=== PATIENT | male | born 1960 | race American Indian/Alaskan Native ===

== ENCOUNTER 2017-02-26 07:12 | Day surgery (SDC) | payer MEDICARE ==
[~2017-02-26 07:12] MED LIST: NEO SYNEPHRINE ONE; ROBINUL ONE; XYLOCAINE MPF 2% ONE
[2017-02-26] MEDS ORDERED: NACL 0.9% 1000 ML 1,000 ML IV SCH (08:00)
[2017-02-26] MEDS ORDERED: WATER FOR IRRIG STERILE IR ONE (08:07)
[2017-02-26] MEDS ORDERED: DIPRIVAN 10 MG/ML IV ONE ×2 (08:09)
[2017-02-26] MEDS ORDERED: NEO SYNEPHRINE ONE (08:11)
--- NOTE | 2017-02-26 08:11 | Anesthesia Consultation ---
Anesthesia Consult and Med Hx Date of service: 02/26/17 - Airway Anesthetic Teeth Evaluation: Good (some missing right side upper and lower) - Pulmonary Exam CTA: Yes - Cardiac Exam Cardiac Exam: RRR - Pre-Operative Health Status ASA Pre-Surgery Classification: ASA3 Proposed Anesthetic Plan: MAC - Pulmonary Hx Smoking: Yes (11/26 PPD) - Cardiovascular System Hx Hypertension: Yes Hx Coronary Artery Disease: Yes - Central Nervous System CVA: Yes (left sided weakness and speech impaired) Hx Psychiatric Problems: No - Endocrine Hx Renal Disease: Yes (bilateral nephrectomy - ESRD DIALYSIS M,W,F) Hx End Stage Renal Disease: Yes Hx Insulin Dependent Diabetes: No - Hematic Hx Anemia: Yes Hx Sickle Cell Disease: No - Other Systems Hx Alcohol Use: No Hx Substance Use: No Hx Cancer: Yes Hx Obesity: No
--- NOTE | 2017-02-26 08:12 | Anesthesia Day of Surgery ---
Anesthesia Day of Surgery - Day of Surgery Patient Examined: Yes Patient H&P Reviewed: Yes Patient is NPO: Yes Beta Blockers: Yes
[2017-02-26] MEDS ORDERED: XYLOCAINE MPF 2% ONE (08:13)
[2017-02-26] MEDS ORDERED: NACL 0.9% ONE (08:13)
--- NOTE | 2017-02-26 08:51 | Short Stay Summary ---
Short Stay Documentation - Allergies and Medications Current Medications: Allergies No Known Allergies Allergy (Verified 02/25/17 12:59) Home Medications Medication Instructions Recorded Confirmed Last Taken Type Rosuvastatin (Nf) [Crestor] 20 mg PO QHS 08/02/13 04/10/15 02/24/17 History Sevelamer Carbonate [Renvela] 800 mg PO TIDWM 08/02/13 04/10/15 02/24/17 History Aspirin [Aspirin TAB] 325 mg PO QDAY 04/10/15 04/10/15 02/13/17 History Bisacodyl [Dulcolax suppos] 10 mg [place] Q12H 04/10/15 04/10/15 02/24/17 History Carvedilol [Coreg] 6.25 mg PO BID 04/10/15 04/10/15 02/24/17 History Folic Acid/Vit B Comp W-C [Renal 1 cap PO QDAY 04/10/15 04/10/15 02/24/17 History Caps] Vit B Cmplx 3/FA/Vit C/Biotin 1 each PO QDAY 04/10/15 04/10/15 02/24/17 History [Pastora-Kelvin Rx Tablet] Active Medications Sodium Chloride (Nacl 0.9% 1000 Ml) 1,000 mls @ 50 mls/hr IV DIRECT BUSTER Last Admin: 02/26/17 07:56 Dose: 50 mls/hr - Brief post op/procedure progress note Date of procedure: 02/26/17 Pre-op diagnosis: Colon cancer screening 2. H/o of colon polyps Post-op diagnosis: same (1. Poor prep 2. Diverticulosis coli) Procedure: Colonoscopy Anesthesia: MAC Findings: As above Surgeon: MATTHEW DACOSTA Estimated blood loss: none Pathology: none Condition: stable - Disposition Condition at discharge: Stable Disposition: DISCHARGED TO HOME OR SELFCARE Short Stay Discharge Plan Activity: no restrictions Weight Bearing Status: Full Weight Bearing Diet: regular, low salt, renal Follow up with: ELIESER MITCHELL MD [Primary Care Provider] - 7 Days
[2017-02-26 09:12] VITALS: BP 127/72
--- NOTE | 2017-02-26 09:32 | Post Anesthesia Evaluation ---
- Post Anesthesia Evaluation Patient Participated: Yes Airway Patent: Yes Stable Respiratory Function: Yes Nausea/Vomiting: No Temp > 96.8F: Yes Pain Manageable: Yes Adequeate Hydration: Yes Anesthesia Complications: No
== END 2017-02-26 07:13 | disposition home or self-care (01) ==
LOC: GIO 07:12
PROVIDERS: ATTEND Internal Medicine Gastroenterology
DX: Z12.11 Encounter for screening for malignant neoplasm of colon (principal); K64.0 First degree hemorrhoids; K57.30 Diverticulosis of large intestine without perforation or abscess without bleeding; I12.0 Hypertensive chronic kidney disease with stage 5 chronic kidney disease or end stage renal disease; N18.6 End stage renal disease; I25.10 Atherosclerotic heart disease of native coronary artery without angina pectoris; F17.210 Nicotine dependence, cigarettes, uncomplicated; D64.9 Anemia, unspecified; Z90.5 Acquired absence of kidney; Z86.73 Personal history of transient ischemic attack (TIA), and cerebral infarction without residual deficits; Z85.9 Personal history of malignant neoplasm, unspecified; Z86.010 Personal history of colon polyps
CPT/HCPCS: G0105; J2370; J2704; J7030

== ENCOUNTER 2017-06-17 17:45 | Emergency (ER) | payer MEDICARE ==
[2017-06-17 19:07] LABS: Hematocrit 35.8 % (35.5-45.6); Hemoglobin 11.9 gm/dl (11.8-15.2); Mean Corpuscular HGB Conc 33 % (32-34); Mean Corpuscular Hemoglobin 34 pg (28-32); Mean Corpuscular Volume 103 fl (84-94); Platelet Count 164 K/mm3 (140-440); Red Blood Count 3.48 M/mm3 (3.65-5.03); Red Cell Distribution Width 16.5 % (13.2-15.2); White Blood Count 6.1 K/mm3 (4.5-11.0)
[2017-06-17 19:12] LABS: BUN/Creatinine Ratio 3.66; Calcium 9.5 mg/dL (8.4-10.2); Chloride 95.3 mmol/L (98-107); Potassium 4.6 mmol/L (3.6-5.0)
--- NOTE | 2017-06-17 19:13 | Cat Scan Report ---
FINAL REPORT PROCEDURE: CT head without contrast. TECHNIQUE: Computerized tomography of the head was performed without contrast material. HISTORY: Headache. COMPARISON: No prior studies are available for comparison. FINDINGS: There is mild cerebral atrophy. There is some diminished attenuation in the right frontal and temporal lobes near the sylvian fissure. This shows no mass effect. There is also some linear low attenuation within the right external capsule. These findings are consistent with an old stroke. Clinical correlation is recommended. There are no mass lesions. There is no intracranial hemorrhage. The calvarium appears intact. The mastoid air cells and visualized paranasal sinuses are well aerated. IMPRESSION: Mild cerebral atrophy and old right-sided stroke as described. No definite signs of acute disease.
[2017-06-17 19:45] LABS: Basophils % (Manual) 0 % (0.0-1.8); Blastocytes % (Manual) 0 %
[2017-06-17 19:47] LABS: Anisocytosis 1+; Diff Status Complete; Platelet Estimate Consistent w Auto
[2017-06-17 23:40] VITALS: BP 140/90
== END 2017-06-17 23:40 | disposition left against medical advice (07) ==
LOC: ED 17:45
DX: M54.2 Cervicalgia (principal); R51 Headache; I50.9 Heart failure, unspecified; I12.0 Hypertensive chronic kidney disease with stage 5 chronic kidney disease or end stage renal disease; N18.6 End stage renal disease; Z86.73 Personal history of transient ischemic attack (TIA), and cerebral infarction without residual deficits; Z99.2 Dependence on renal dialysis; Z53.21 Procedure and treatment not carried out due to patient leaving prior to being seen by health care provider
CPT/HCPCS: 36415; 70450; 80048; 85007; 85025

== ENCOUNTER 2018-07-01 05:09 | Inpatient (IN) | payer MEDICARE ==
--- NOTE | 2018-07-01 06:18 | Emergency Department Report ---
ED General Adult HPI - General Chief complaint: Wound/Laceration Stated complaint: ARTERIAL BLEED Time Seen by Provider: 07/01/18 06:16 Source: EMS Mode of arrival: Ambulatory Limitations: Other - History of Present Illness Initial comments: Chief complaint: bleeding from dialysis shunt History of present illness: Patient reported that his dialysis shunt, located left forearm, began bleeding at 3:00 this morning, when he was unable to control it. Patient was hospitalized last week, at another hospital, for the same complaint, evaluated by surgeon, had a procedure, to clear a clot, was observed, and apparently released for use of shunt, and had first dialysis yesterday, with bleeding during this past evening. Pressure dressing was applied, patient is stable otherwise, has no other complaints Severity scale (0 -10): 0 - Related Data Home Medications Medication Instructions Recorded Confirmed Last Taken Rosuvastatin (Nf) [Crestor] 20 mg PO QHS 08/02/13 06/17/17 06/16/17 Aspirin [Aspirin TAB] 325 mg PO QDAY 04/10/15 06/17/17 06/16/17 Bisacodyl [Dulcolax suppos] 10 mg [place] Q12H 04/10/15 06/17/17 06/16/17 Carvedilol [Coreg] 6.25 mg PO BID 04/10/15 06/17/17 06/16/17 Folic Acid/Vit B Comp W-C [Renal 1 cap PO QDAY 04/10/15 06/17/17 06/16/17 Caps] Allergies Allergy/AdvReac Type Severity Reaction Status Date / Time No Known Allergies Allergy Verified 06/17/17 18:28 ED Review of Systems ROS: Stated complaint: ARTERIAL BLEED Other details as noted in HPI ED Past Medical Hx - Past Medical History Previous Medical History?: Yes Hx Hypertension: Yes Hx CVA: Yes Hx Congestive Heart Failure: Yes Hx Renal Disease: Yes (bilateral nephrectomy - ESRD DIALYSIS M,W,F) Hx Sickle Cell Disease: No - Surgical History Past Surgical History?: Yes - Social History Smoking Status: Former Smoker Substance Use Type: Alcohol - Medications Home Medications: Home Medications Medication Instructions Recorded Confirmed Last Taken Type Rosuvastatin (Nf) [Crestor] 20 mg PO QHS 08/02/13 06/17/17 06/16/17 History Aspirin [Aspirin TAB] 325 mg PO QDAY 04/10/15 06/17/17 06/16/17 History Bisacodyl [Dulcolax suppos] 10 mg [place] Q12H 04/10/15 06/17/17 06/16/17 History Carvedilol [Coreg] 6.25 mg PO BID 04/10/15 06/17/17 06/16/17 History Folic Acid/Vit B Comp W-C [Renal 1 cap PO QDAY 04/10/15 06/17/17 06/16/17 History Caps] ED Physical Exam - General Limitations: Other General appearance: alert, in no apparent distress - Head Head exam: Present: atraumatic, normocephalic - Eye Eye exam: Present: PERRL - ENT ENT exam: Present: normal exam, mucous membranes dry - Neck Neck exam: Present: normal inspection, full ROM. Absent: tenderness - Respiratory Respiratory exam: Present: normal lung sounds bilaterally. Absent: wheezes, rales, rhonchi - Cardiovascular Cardiovascular Exam: Present: regular rate, normal heart sounds - GI/Abdominal GI/Abdominal exam: Present: soft, normal bowel sounds. Absent: distended - Rectal Rectal exam: Present: deferred - Extremities Exam Extremities exam: Present: normal inspection, other (puncture site, left radial shunt site, bleeds with removal of pressure dressing, no thrill or clot observed , dressing reapplied). Absent: pedal edema - Neurological Exam Neurological exam: Present: alert, CN II-XII intact. Absent: motor sensory deficit - Psychiatric Psychiatric exam: Present: normal affect, normal mood - Skin Skin exam: Present: warm, dry ED Course Vital Signs 07/01/18 05:38 Temperature 36.9 C Pulse Rate 86 Respiratory 20 Rate Blood Pressure 104/77 O2 Sat by Pulse 99 Oximetry ED Medical Decision Making - Lab Data Result diagrams: 07/01/18 05:58 - Medical Decision Making Patient has shunt bleeding, left forearm at radius AV shunt site, will be admitted for evaluation by privacy officer and vascular surgeon, with hospitalist Dr. Jernigan consult for admission. Critical Care Time: No Critical care attestation.: If time is entered above; I have spent that time in minutes in the direct care of this critically ill patient, excluding procedure time. ED Disposition Clinical Impression: ESRD (end stage renal disease) on dialysis AV shunt malfunction Qualifiers: Encounter type: initial encounter Qualified Code(s): T82.591A - Other mechanical complication of surgically created arteriovenous shunt, initial encounter Disposition: OP ADMIT IP TO THIS HOSP Is pt being admited?: Yes Does the pt Need Aspirin: No Condition: Stable Referrals: PRIMARY CARE, [Primary Care Provider] - 3-5 Days Time of Disposition: 09:26
[2018-07-01 06:31] LABS: Basophils # (Auto) 0.1 K/mm3 (0.0-0.1); Basophils % (Auto) 0.9 % (0.0-1.8); Eosinophils # (Auto) 0.3 K/mm3 (0.0-0.4); Eosinophils % (Auto) 3.4 % (0.0-4.3); Hemoglobin 11.5 gm/dl (11.8-15.2); Lymphocytes # (Auto) 2.5 K/mm3 (1.2-5.4); Lymphocytes % (Auto) 32.1 % (13.4-35.0); Mean Corpuscular HGB Conc 34 % (32-34); Mean Corpuscular Hemoglobin 35 pg (28-32); Mean Corpuscular Volume 104 fl (84-94); Monocytes # (Auto) 0.9 K/mm3 (0.0-0.8); Monocytes % (Auto) 11.8 % (0.0-7.3); Platelet Count 280 K/mm3 (140-440); Red Blood Count 3.26 M/mm3 (3.65-5.03); Red Cell Distribution Width 15.9 % (13.2-15.2)
[2018-07-01 09:39] LABS: INR 0.96 (0.87-1.13)
[2018-07-01 09:40] LABS: Partial Thromboplastin Time 27.8 Sec. (24.2-36.6)
[2018-07-01 09:45] LABS: Albumin 3.9 g/dL (3.9-5); Calcium 9.1 mg/dL (8.4-10.2)
--- NOTE | 2018-07-01 10:30 | History and Physical Report ---
History of Present Illness Date of examination: 07/01/18 Date of admission: 07/01/18 Chief complaint: bleeding from dialysis shunt History of present illness: 57-year-old male with significant past medical history of ESRD and hypertension who presents to the emergency department with complaints of bleeding from AV graft. The patient has a AV graft located in the left forearm and it began bleeding at approximately 5 AM this morning. Patient reports that he was hospitalized last week for a thrombectomy of his shunt. Patient reports that his last hemodialysis was yesterday. Patient denies any other complaints of chest pain or shortness of breath. No hematemesis or hematochezia. No cough or cold-like symptoms. No fever or chills. Past History Past Medical History: ESRD, heart failure, hypertension, hyperlipidemia, stroke Past Surgical History: Other Social history: no significant social history Family history: no significant family history Medications and Allergies Allergies Allergy/AdvReac Type Severity Reaction Status Date / Time No Known Allergies Allergy Verified 06/17/17 18:28 Home Medications Medication Instructions Recorded Confirmed Last Taken Type Rosuvastatin (Nf) [Crestor] 20 mg PO QHS 08/02/13 06/17/17 06/16/17 History Aspirin [Aspirin TAB] 325 mg PO QDAY 04/10/15 06/17/17 06/16/17 History Bisacodyl [Dulcolax suppos] 10 mg [place] Q12H 04/10/15 06/17/17 06/16/17 History Carvedilol [Coreg] 6.25 mg PO BID 04/10/15 06/17/17 06/16/17 History Folic Acid/Vit B Comp W-C [Renal 1 cap PO QDAY 04/10/15 06/17/17 06/16/17 History Caps] Review of Systems All systems: negative Exam - Constitutional Vitals: Temp Pulse Resp BP Pulse Ox 98.5 F 86 20 104/77 99 07/01/18 05:38 07/01/18 05:38 07/01/18 05:38 07/01/18 05:38 07/01/18 05:38 General appearance: Present: no acute distress, well-nourished - EENT Eyes: Present: PERRL ENT: hearing intact, clear oral mucosa - Neck Neck: Present: supple, normal ROM - Respiratory Respiratory effort: normal Respiratory: bilateral: CTA - Cardiovascular Heart Sounds: Present: S1 & S2. Absent: rub, click - Extremities Extremities: pulses symmetrical, No edema Peripheral Pulses: within normal limits - Abdominal General gastrointestinal: Present: soft, non-tender, non-distended, normal bowel sounds Male genitourinary: Present: normal - Integumentary Integumentary: Present: clear, warm, dry - Musculoskeletal Musculoskeletal: gait normal, strength equal bilaterally - Psychiatric Psychiatric: appropriate mood/affect, intact judgment & insight - Neurologic Neurologic: CNII-XII intact, moves all extremities Results - Labs CBC & Chem 7: 07/01/18 05:58 07/01/18 09:12 Labs: Laboratory Last Values WBC 7.8 K/mm3 (4.5-11.0) 07/01/18 05:58 RBC 3.26 M/mm3 (3.65-5.03) L 07/01/18 05:58 Hgb 11.5 gm/dl (11.8-15.2) L 07/01/18 05:58 Hct 34.0 % (35.5-45.6) L 07/01/18 05:58 MCV 104 fl (84-94) H 07/01/18 05:58 MCH 35 pg (28-32) H 07/01/18 05:58 MCHC 34 % (32-34) 07/01/18 05:58 RDW 15.9 % (13.2-15.2) H 07/01/18 05:58 Plt Count 280 K/mm3 (140-440) 07/01/18 05:58 Lymph % (Auto) 32.1 % (13.4-35.0) 07/01/18 05:58 Dunn % (Auto) 11.8 % (0.0-7.3) H 07/01/18 05:58 Eos % (Auto) 3.4 % (0.0-4.3) 07/01/18 05:58 Baso % (Auto) 0.9 % (0.0-1.8) 07/01/18 05:58 Lymph # 2.5 K/mm3 (1.2-5.4) 07/01/18 05:58 Dunn # 0.9 K/mm3 (0.0-0.8) H 07/01/18 05:58 Eos # 0.3 K/mm3 (0.0-0.4) 07/01/18 05:58 Baso # 0.1 K/mm3 (0.0-0.1) 07/01/18 05:58 Seg Neutrophils % 51.8 % (40.0-70.0) 07/01/18 05:58 Seg Neutrophils # 4.1 K/mm3 (1.8-7.7) 07/01/18 05:58 PT 13.3 Sec. (12.2-14.9) 07/01/18 09:12 INR 0.96 (0.87-1.13) 07/01/18 09:12 APTT 27.8 Sec. (24.2-36.6) 07/01/18 09:12 Sodium 142 mmol/L (137-145) 07/01/18 09:12 Potassium 3.6 mmol/L (3.6-5.0) 07/01/18 09:12 Chloride 98.8 mmol/L (98-107) 07/01/18 09:12 Carbon Dioxide 27 mmol/L (22-30) 07/01/18 09:12 Anion Gap 20 mmol/L 07/01/18 09:12 BUN 19 mg/dL (9-20) 07/01/18 09:12 Creatinine 6.7 mg/dL (0.8-1.5) H 07/01/18 09:12 Estimated GFR 10 ml/min 07/01/18 09:12 BUN/Creatinine Ratio 3 % 07/01/18 09:12 Glucose 100 mg/dL (75-100) 07/01/18 09:12 Calcium 9.1 mg/dL (8.4-10.2) 07/01/18 09:12 Total Bilirubin 0.40 mg/dL (0.1-1.2) 07/01/18 09:12 AST 18 units/L (5-40) 07/01/18 09:12 ALT 10 units/L (7-56) 07/01/18 09:12 Alkaline Phosphatase 113 units/L (35-129) 07/01/18 09:12 Total Protein 7.8 g/dL (6.3-8.2) 07/01/18 09:12 Albumin 3.9 g/dL (3.9-5) 07/01/18 09:12 Albumin/Globulin Ratio 1.0 % 07/01/18 09:12 Blood Type O POSITIVE 07/01/18 05:58 Antibody Screen Negative 07/01/18 05:58 Assessment and Plan Assessment and plan: AV graft bleeding. [facility] surgery has been notified by the ER physician. Await vascular surgery consultation. Continue pressure dressing. Follow-up coags and serial CBC. Transfuse for hemoglobin less than 7. ESRD. Continue hemodialysis per nephrology. Chronic systolic heart failure. Compensated. Patient has cardiac catheterization in 2014 that revealed EF 35%. Continue Coreg. CAD. Hold aspirin for now given the bleeding. Hyperlipidemia. Continue home medication of Crestor. Hypertension. Continue antihypertensive medications as needed. - Patient Problems (1) AV shunt malfunction Current Visit: Yes Status: Acute Qualifiers: Encounter type: initial encounter Qualified Code(s): T82.591A - Other mechanical complication of surgically created arteriovenous shunt, initial encounter (2) ESRD (end stage renal disease) on dialysis Current Visit: Yes Status: Chronic (3) CAD (coronary artery disease) Current Visit: No Status: Acute (4) Cardiomyopathy Current Visit: No Status: Chronic (5) Hyperlipemia Current Visit: No Status: Chronic (6) Hypertension Current Visit: No Status: Chronic
[2018-07-01] MEDS ORDERED: TYLENOL PO PRN (10:35)
[2018-07-01] MEDS ORDERED: SODIUM CHLORIDE FLUSH SYRINGE 10 ML IV PRN (10:35)
[2018-07-01] MEDS: DULCOLAX PR SCH ×2 (10:42→23:00)
[2018-07-01] MEDS ORDERED: ZOFRAN IV PRN (11:00)
[2018-07-01] MEDS ORDERED: HEPARIN/NS 5000 UNIT/500ML(CATH LAB) 1,000 ML IR ONE (14:20)
[2018-07-01] MEDS ORDERED: XYLOCAINE 1%/ EPI 1:100,000 INFILTRATI ONE (14:21)
[2018-07-01] MEDS ORDERED: HEPARIN 10,000 UNITS/10 ML ONE (14:21)
[2018-07-01] MEDS ORDERED: ANCEF/STERILE WATER 2 GM/20 ML 2 GM/20 ML SYRINGE IV ONE (14:22)
[2018-07-01] MEDS: VERSED ONE ×2 (14:48→14:51)
[2018-07-01] MEDS: SUBLIMAZE ONE ×3 (14:48→15:06)
[2018-07-01] MEDS ORDERED: SUBLIMAZE ONE (14:54)
--- NOTE | 2018-07-01 15:23 | Post Operative Note ---
Date of procedure: 07/01/18 Pre-op diagnosis: ESRD with AVF malfunction Post-op diagnosis: same Findings: old access site from access center which was closed with pressure reopened - closed with 3, 3-0 ethilon sutures Severe 95% anastamotic narrowing reduced to 10% residual narrowing mild infiltration of the AVF fistula site likely from old access site bleeding If can be accessed without issue during dialysis, then can consider discharge with f/u with PVS in 1-2 weeks If infiltration is hindering access, then may need temporary permcath placement Procedure: Fistulogram with angioplasty Anesthesia: local Surgeon: YADI MIDDLETON Estimated blood loss: minimal Condition: stable Disposition: floor
--- NOTE | 2018-07-01 15:23 | Operative Report ---
Operative Report Operative Report: EXAM: 1. Ultrasound guided access of the left arm radiocephalic AV fistula towards the anastomosis 2. Placement of a 6 Fr sheath towards the anastomosis 3. Selection of the radial artery and a retrograde fashion with angiography of the left upper extremity 4. Angioplasty of the anastomosis and perianastamotic portion of the AV fistula with a 5 mm angioplasty balloon and subsequently with a 6 mm angioplasty balloon DATE: 07/01/18 FILTERING MACHINE TENDER HELPER: YADI MIDDLETON MD INDICATION: 57-year-old male with bleeding from AV fistula with recent fistulogram performed at outside institution. MEDICATIONS: Please see nursing report for full details. DEVICES: 5 mm x 60 mm angioplasty balloon 6 mm x 40 mm angioplasty balloon PROCEDURE: The risks, benefits, and alternatives of the procedure were discussed and written informed consent was obtained. The patient was transported in stable condition to the angiography suite. The radiocephalic fistula was evaluated with ultrasound and on visual exam. Ultrasound demonstrated a slight amount of infiltration overlying the aneurysmal portion of the cephalic vein of the AV fistula. There is an old puncture site at the midportion of the cephalic vein which was not bleeding, but the site of prior bleeding. This was an old access site for fistulogram which was closed with manual compression without suture at outside institution. The area was anesthetized with 1% lidocaine. The old access site was closed with 3 separate stitches with 3-0 Ethilon. The patient's left arm AV fistula was assessed by ultrasound and was patent. The patient was prepped and draped in a sterile fashion. Under ultrasound guidance, the left arm AV radiocephalic fistula was accessed with a 21-gauge micropuncture needle at the midportion of the aneurysmal cephalic vein. The area was anesthetized prior to access. 0.018 inch wire was advanced through the micropuncture needle into the fistula and then the needle was exchanged for a 5 Solomon Islander transitional dilator. The inner dilator and wire were removed and a 0.035 inch wire was advanced through the cephalic vein. The transitional dilator was exchanged for a 6 [place] Islander short sheath. Angled catheter and guidewire were used to select the radial artery. Digital subtraction angiography was performed demonstrating severe anastomotic and nata- anastomotic narrowing with patency of the rest of the AV fistula. There are some side branches which are not significant in size. Angioplasty was performed with perianastomotic and anastomotic region with a 5 mm x 60 mm angioplasty balloon vision subtraction angiography demonstrated about 25% residual narrowing. 6 mm x 40 mm angioplasty balloon was used to perform angioplasty of the anastomosis and perianastomotic region. Digital subtraction angiography demonstrated less than 10% residual narrowing. Fistulogram was performed of the venous outflow and central veins. Subtraction angiography demonstrated patency of the venous outflow and central veins. The venous outflow was predominantly comprised of the cephalic vein. The wire was removed and the site was closed with a 3-0 Vicryl suture. The sheath was then removed. Hemostasis was achieved with slight manual compression. The patient was transported from the angiography suite to the floor in stable condition. IMPRESSION: Successful fistulogram and venoplasty as descibed above with a 5 mm and 6 mm angioplasty balloon.
--- NOTE | 2018-07-01 16:28 | Consultation ---
History of Present Illness - Reason for Consult Consult date: 07/01/18 Malfunctioning Left Upper Extremity AV Fistula - History of Present Illness Patient was evaluated earlier this morning. This patient is a 57-year-old -[place] male that presented to the emergency room today due to complaints of persistent bleeding from his left arm AV fistula. The fistula was [place] [address] Esteves. He states he has had multiple episodes of bleeding over the last few weeks. He reports going to the access center essentially every 3 months for fistulogram and angioplasty. He was admitted to [facility] last week, and an angioplasty was performed. He developed recurrent bleeding early this morning which prompted him to go to the emergency room. Past History Past Medical History: dialysis, ESRD, heart failure, hypertension, hyperlipidemia, stroke Past Surgical History: Other (left Ginger AV fistula, previous right internal jugular vein permacath, multiple fistulograms to the left upper extremity AV fistula) Social history: no significant social history Family history: no significant family history Medications and Allergies Allergies Allergy/AdvReac Type Severity Reaction Status Date / Time No Known Allergies Allergy Verified 06/17/17 18:28 Home Medications Medication Instructions Recorded Confirmed Last Taken Type Carvedilol [Coreg] 6.25 mg PO BID 04/10/15 07/01/18 06/16/17 History Lisinopril [Prinivil] 5 mg PO QDAY 07/01/18 07/01/18 Unknown History Rosuvastatin Calcium [Crestor] 20 mg PO HS 07/01/18 07/01/18 Unknown History Sevelamer Carbonate [Renvela] 1,600 mg PO TIDWM 07/01/18 07/01/18 Unknown History Active Meds: Active Medications Acetaminophen (Tylenol) 650 mg PO Q4H PRN PRN Reason: Pain MILD(1-3)/Fever >100.5/LARSON Atorvastatin Calcium (Lipitor) 40 mg PO QHS BUSTER Bisacodyl (Dulcolax) 10 mg [place] Q12H BUSTER Last Admin: 07/01/18 10:42 Dose: Not Given Carvedilol (Coreg) 6.25 mg PO BID BUSTER Multivit/Ca Carb/B Cmplx/FA/Prenat (Renal Caps) 1 cap PO QDAY BUSTER Ondansetron HCl (Zofran) 4 mg IV Q8H PRN PRN Reason: Nausea And Vomiting Sodium Chloride (Sodium Chloride Flush Syringe 10 Ml) 10 ml IV BID BUSTER Sodium Chloride (Sodium Chloride Flush Syringe 10 Ml) 10 ml IV PRN PRN PRN Reason: LINE FLUSH Stop: 07/11/18 10:34 Review of Systems All systems: negative Exam - Constitutional Vitals: Temp Pulse Resp BP Pulse Ox 98.5 F 84 18 111/75 98 07/01/18 12:29 07/01/18 12:29 07/01/18 12:29 07/01/18 12:29 07/01/18 16:03 General appearance: Present: no acute distress - EENT Eyes: Present: EOM intact ENT: hearing intact - Neck Neck: Present: supple - Respiratory Respiratory effort: normal - Extremities Extremities: abnormal (left upper extremity, he has a radiocephalic (Ginger) AV fistula, there is an elongated pseudoaneurysm along the course of the proximal ( towards the radial artery anastomosis) AV fistula. There is hole in the skin ~2 -3mm (I suspect the recent access site) that appears to be where he was bleeding upon admission. There is no bleeding from the site at present. There is no erythema surrounding the skin defect. He has a strong thrill at the arterial anastomosis, but the diminishes before the pseudoaneurysm, the is a weak thrill throughout the course of the fistula up through the upper arm.) - Psychiatric Psychiatric: appropriate mood/affect, intact judgment & insight, cooperative - Neurologic Neurologic: no focal deficits Results - Labs CBC & Chem 7: 07/01/18 05:58 07/01/18 09:12 Labs: Abnormal lab results 07/01/18 07/01/18 Range/Units 05:58 09:12 RBC 3.26 L (3.65-5.03) M/mm3 Hgb 11.5 L (11.8-15.2) gm/dl Hct 34.0 L (35.5-45.6) % MCV 104 H (84-94) fl MCH 35 H (28-32) pg RDW 15.9 H (13.2-15.2) % [place] % (Auto) 11.8 H (0.0-7.3) % [place] # 0.9 H (0.0-0.8) K/mm3 Creatinine 6.7 H (0.8-1.5) mg/dL Assessment and Plan This patient is status post creation of left upper extremity AV [place] [address] Esteves. He's had multiple episodes of bleeding in the recent past. He's been going to the outpatient fistula center (every 3 months per patient report). His last intervention was last week while admitted to [facility]. He presents today to the emergency room with recurrent bleeding from AV fistula. The patient was evaluated, and the hemorrhage had stopped. Discussed options with the patient and his family member at the bedside. Recommend a fistulogram with possible angioplasty. If the fistula appears to be unsalvageable he may require permacath placement. The risks benefits and alternatives to these procedures were discussed in great detail. The patient stated understanding (having previously undergone similar procedures), and agreed to proceed. - Patient Problems (1) Malfunction of arteriovenous dialysis fistula Current Visit: Yes Status: Acute (2) ESRD (end stage renal disease) on dialysis Current Visit: Yes Status: Chronic (3) CAD (coronary artery disease) Current Visit: No Status: Acute (4) CVA (cerebral vascular accident) Current Visit: No Status: Chronic (5) Hyperlipemia Current Visit: No Status: Chronic (6) Hypertension Current Visit: No Status: Chronic
--- NOTE | 2018-07-01 17:49 | Consultation ---
History of Present Illness - Reason for Consult Consult date: 07/01/18 end stage renal disease Requesting physician: MCKENZIE CHUNG - History of Present Illness This is a 57 yo M with past medical history of hypertension, ESRD since 2010 on HD on MWF schedule, h/o papillary renal cell CA, s/p b/l nephrectomy in 04/2014, who presented to the ER today due to complaints of persistent bleeding from his left arm AV fistula. Last HD was performed yesterday, and after treatment there was good hemostasis. However pt reports that he had multiple episodes of bleeding over the last few weeks, was hospitalized last week for a thrombectomy of his shunt. He developed recurrent bleeding early this morning which prompted him to present to ER. Pt denies fever, chills nausea, vomiting, dizziness, palpitations, SOB, CP. labs showed stable Hb at 11.5. Renal consult is requested for management of ESRD/HD Past History Past Medical History: dialysis, ESRD, heart failure, hypertension, hyperlipidemia, stroke Past Surgical History: Other (left Ginger AV fistula, previous right internal jugular vein permacath, multiple fistulograms to the left upper extremity AV fistula) Social history: no significant social history Family history: no significant family history Medications and Allergies Allergies Allergy/AdvReac Type Severity Reaction Status Date / Time No Known Allergies Allergy Verified 06/17/17 18:28 Home Medications Medication Instructions Recorded Confirmed Last Taken Type Carvedilol [Coreg] 6.25 mg PO BID 04/10/15 07/01/18 06/16/17 History Lisinopril [Prinivil] 5 mg PO QDAY 07/01/18 07/01/18 Unknown History Rosuvastatin Calcium [Crestor] 20 mg PO HS 07/01/18 07/01/18 Unknown History Sevelamer Carbonate [Renvela] 1,600 mg PO TIDWM 07/01/18 07/01/18 Unknown History Active Meds: Active Medications Acetaminophen (Tylenol) 650 mg PO Q4H PRN PRN Reason: Pain MILD(1-3)/Fever >100.5/[place] Atorvastatin Calcium (Lipitor) 40 mg PO QHS [facility]UST[facility] Bisacodyl (Dulcolax) 10 mg [place] Q12H BUSTER Last Admin: 07/01/18 10:42 Dose: Not Given Carvedilol (Coreg) 6.25 mg PO BID BUSTER Multivit/Ca Carb/B Cmplx/FA/Prenat (Renal Caps) 1 cap PO QDAY BUSTER Ondansetron HCl (Zofran) 4 mg IV Q8H PRN PRN Reason: Nausea And Vomiting Sodium Chloride (Sodium Chloride Flush Syringe 10 Ml) 10 ml IV BID [facility] Sodium Chloride (Sodium Chloride Flush Syringe 10 Ml) 10 ml IV PRN PRN PRN Reason: LINE FLUSH Stop: 07/11/18 10:34 Review of Systems All systems: negative Hematologic/Lymphatic: easy bleeding Exam - Vital Signs Vital signs: Vital Signs Temp Pulse Resp BP Pulse Ox 98.5 F 86 20 104/77 99 07/01/18 05:38 07/01/18 05:38 07/01/18 05:38 07/01/18 05:38 07/01/18 05:38 - General Appearance General appearance: well-developed, well-nourished, appears stated age EENT: ATNC, PERRL, mucous membranes moist Neck: Present: neck supple Respiratory: Clear to Ascultation Heart: regular, S1S2 Gastrointestinal: Present: normoactive bowel sounds Integumentary: no rash, other (no edema, LUE AVF site in compression dressing ) Neurologic: no focal deficit, alert and oriented x3, strength 5/5, CN 3-12 intact Psychiatric: mood/affect appropriate, cooperative Results - Lab Results 07/01/18 05:58 07/01/18 09:12 Most recent lab results Calcium 9.1 mg/dL (8.4-10.2) 07/01/18 09:12 Assessment and Plan - Patient Problems (1) Malfunction of arteriovenous dialysis fistula Current Visit: Yes Status: Acute Plan to address problem: s/p fistulogram/angioplasty today, severe anastomotic narrowing of 95% noted, s/ p angioplasty with 10% residual narrowing (2) ESRD (end stage renal disease) on dialysis Current Visit: Yes Status: Chronic Plan to address problem: Will attempt HD in AM using LUE AVF. if problems occur to access AVF due to infiltation will ask IR to place permcath. Appreciate vascular surgery input. Cont HD on MWF schedule (3) Hypertension Current Visit: No Status: Chronic Plan to address problem: bp stable, monitor on current meds (4) Anemia in end-stage renal disease Current Visit: Yes Status: Acute Plan to address problem: Hb stable at target, no need for EPO at present
[2018-07-01] MEDS ORDERED: NACL 0.9% 100 ML IV PRN (18:02)
[2018-07-01] MEDS: COREG PO SCH (21:53)
[2018-07-01] MEDS: SODIUM CHLORIDE FLUSH SYRINGE 10 ML IV SCH (21:55)
[2018-07-01] MEDS ORDERED: NON-FORMULARY (Rosuvastatin (Nf) 20 MG) PO SCH (22:00)
[2018-07-02 06:50] LABS: Basophils # (Auto) 0.1 K/mm3 (0.0-0.1); Basophils % (Auto) 0.8 % (0.0-1.8); Eosinophils # (Auto) 0.4 K/mm3 (0.0-0.4); Eosinophils % (Auto) 4.8 % (0.0-4.3); Hematocrit 28.9 % (35.5-45.6); Hemoglobin 9.8 gm/dl (11.8-15.2); Lymphocytes # (Auto) 2.9 K/mm3 (1.2-5.4); Lymphocytes % (Auto) 31.8 % (13.4-35.0); Mean Corpuscular HGB Conc 34 % (32-34); Mean Corpuscular Hemoglobin 35 pg (28-32); Mean Corpuscular Volume 104 fl (84-94); Monocytes % (Auto) 10.3 % (0.0-7.3); Platelet Count 250 K/mm3 (140-440); Red Blood Count 2.77 M/mm3 (3.65-5.03); Red Cell Distribution Width 15.8 % (13.2-15.2)
[2018-07-02 07:07] LABS: Calcium 9.1 mg/dL (8.4-10.2)
[2018-07-02] MEDS: Renal Caps PO SCH (09:17)
[2018-07-02] MEDS: SODIUM CHLORIDE FLUSH SYRINGE 10 ML IV SCH ×2 (10:00→22:44)
[2018-07-02] MEDS: DULCOLAX PR SCH ×2 (11:00→22:45)
--- NOTE | 2018-07-02 11:00 | Progress Note ---
Assessment and Plan Assessment and plan: Malfunction of arteriovenous dialysis fistula. Patient is status post fistulogram/angioplasty yesterday. Patient was noted to have severe anastomotic narrowing of 95% with 10% residual narrowing after angioplasty. ESRD. We will attempt hemodialysis today using left upper extremity AVF. The patient has no further issues, we will likely discharge in a.m. If problems occur to access AVF due to infiltation will ask IR to place permcath. Chronic systolic heart failure. Compensated. Patient has cardiac catheterization in 2014 that revealed EF 35%. Continue Coreg. CAD. Resume aspirin. Hyperlipidemia. Continue home medication of Crestor. Hypertension. Continue antihypertensive medications as needed. - Patient Problems (1) AV shunt malfunction Current Visit: Yes Status: Acute Qualifiers: Encounter type: initial encounter Qualified Code(s): T82.591A - Other mechanical complication of surgically created arteriovenous shunt, initial encounter (2) ESRD (end stage renal disease) on dialysis Current Visit: Yes Status: Chronic (3) CAD (coronary artery disease) Current Visit: No Status: Acute (4) Cardiomyopathy Current Visit: No Status: Chronic (5) Hyperlipemia Current Visit: No Status: Chronic (6) Hypertension Current Visit: No Status: Chronic History Interval history: No new issues overnight. Hospitalist Physical - Constitutional Vitals: Temp Pulse Resp BP Pulse Ox 98.5 F 82 16 107/74 97 07/01/18 23:21 07/01/18 23:21 07/01/18 23:21 07/01/18 21:53 07/02/18 09:38 General appearance: Present: no acute distress - EENT Eyes: Present: PERRL, EOM intact ENT: hearing intact, clear oral mucosa, dentition normal - Neck Neck: Present: supple, normal ROM - Respiratory Respiratory effort: normal Respiratory: bilateral: CTA - Cardiovascular Rhythm: regular Heart Sounds: Present: S1 & S2. Absent: gallop, rub - Extremities Extremities: no ischemia, No edema, Full ROM - Abdominal General gastrointestinal: soft, non-tender, non-distended, normal bowel sounds - Integumentary Integumentary: Present: clear, warm, dry - Neurologic Neurologic: CNII-XII intact, moves all extremities Results - Labs CBC & Chem 7: 07/02/18 05:48 07/02/18 05:48 Labs: Laboratory Last Values WBC 9.3 K/mm3 (4.5-11.0) 07/02/18 05:48 RBC 2.77 M/mm3 (3.65-5.03) L 07/02/18 05:48 Hgb 9.8 gm/dl (11.8-15.2) L 07/02/18 05:48 Hct 28.9 % (35.5-45.6) L 07/02/18 05:48 MCV 104 fl (84-94) H 07/02/18 05:48 MCH 35 pg (28-32) H 07/02/18 05:48 MCHC 34 % (32-34) 07/02/18 05:48 RDW 15.8 % (13.2-15.2) H 07/02/18 05:48 Plt Count 250 K/mm3 (140-440) 07/02/18 05:48 Lymph % (Auto) 31.8 % (13.4-35.0) 07/02/18 05:48 Wagoner % (Auto) 10.3 % (0.0-7.3) H 07/02/18 05:48 Eos % (Auto) 4.8 % (0.0-4.3) H 07/02/18 05:48 Baso % (Auto) 0.8 % (0.0-1.8) 07/02/18 05:48 Lymph # 2.9 K/mm3 (1.2-5.4) 07/02/18 05:48 Wagoner # 1.0 K/mm3 (0.0-0.8) H 07/02/18 05:48 Eos # 0.4 K/mm3 (0.0-0.4) 07/02/18 05:48 Baso # 0.1 K/mm3 (0.0-0.1) 07/02/18 05:48 Seg Neutrophils % 52.3 % (40.0-70.0) 07/02/18 05:48 Seg Neutrophils # 4.9 K/mm3 (1.8-7.7) 07/02/18 05:48 PT 13.3 Sec. (12.2-14.9) 07/01/18 09:12 INR 0.96 (0.87-1.13) 07/01/18 09:12 APTT 27.8 Sec. (24.2-36.6) 07/01/18 09:12 Sodium 139 mmol/L (137-145) 07/02/18 05:48 Potassium 3.9 mmol/L (3.6-5.0) 07/02/18 05:48 Chloride 97.7 mmol/L (98-107) L 07/02/18 05:48 Carbon Dioxide 23 mmol/L (22-30) 07/02/18 05:48 Anion Gap 22 mmol/L 07/02/18 05:48 BUN 25 mg/dL (9-20) H 07/02/18 05:48 Creatinine 8.8 mg/dL (0.8-1.5) H 07/02/18 05:48 Estimated GFR 8 ml/min 07/02/18 05:48 BUN/Creatinine Ratio 3 % 07/02/18 05:48 Glucose 88 mg/dL (75-100) 07/02/18 05:48 Calcium 9.1 mg/dL (8.4-10.2) 07/02/18 05:48 Total Bilirubin 0.40 mg/dL (0.1-1.2) 07/01/18 09:12 AST 18 units/L (5-40) 07/01/18 09:12 ALT 10 units/L (7-56) 07/01/18 09:12 Alkaline Phosphatase 113 units/L (35-129) 07/01/18 09:12 Total Protein 7.8 g/dL (6.3-8.2) 07/01/18 09:12 Albumin 3.9 g/dL (3.9-5) 07/01/18 09:12 Albumin/Globulin Ratio 1.0 % 07/01/18 09:12 Blood Type O POSITIVE 07/01/18 05:58 Antibody Screen Negative 07/01/18 05:58
--- NOTE | 2018-07-02 11:38 | Progress Note ---
Assessment and Plan - Patient Problems (1) ESRD (end stage renal disease) on dialysis Current Visit: Yes Status: Chronic Plan to address problem: Will attempt HD using LUE AVF. if problems occur to access AVF due to infiltation will ask IR to place permcath. Appreciate vascular surgery input. Cont HD on MWF schedule (2) Malfunction of arteriovenous dialysis fistula Current Visit: Yes Status: Acute Plan to address problem: s/p fistulogram/angioplasty on 07/01, severe anastomotic narrowing of 95% noted, s /p angioplasty with 10% residual narrowing (3) Hypertension Current Visit: No Status: Chronic Plan to address problem: bp stable, monitor on current meds (4) Anemia in end-stage renal disease Current Visit: Yes Status: Acute Plan to address problem: Hb stable at target, no need for EPO at present Subjective Date of service: 07/02/18 Principal diagnosis: ESRD Interval history: Pt awake, alert, in NAD, no further bleeding from AVF site reported. Objective - Vital Signs Vital signs: Vital Signs - 12hr 07/02/18 09:38 O2 Sat by Pulse 97 Oximetry - General Appearance General appearance: well-developed, well-nourished, appears stated age EENT: ATNC, PERRL, mucous membranes moist Neck: no JVD Respiratory: Present: Clear to Ascultation Cardiology: regular, S1S2 Gastrointestinal: normoactive bowel sounds Integumentary: no rash, other (no edema, LUE AVF with + bruit/thrill ) Neurologic: no focal deficit, alert and oriented x3, strength 5/5, CN 3-12 intact Psychiatric: mood/affect appropriate, cooperative - Lab 07/02/18 05:48 07/02/18 05:48 Most recent lab results Calcium 9.1 mg/dL (8.4-10.2) 07/02/18 05:48
[2018-07-02] MEDS ORDERED: NACL 0.9 (PRIMING MACHINE ONLY DIALYSIS) MC ONE (13:48)
--- NOTE | 2018-07-02 15:29 | Discharge Summary ---
Providers - Providers Date of Admission: 07/01/18 10:35 Date of discharge: 07/03/18 Attending physician: MCKENZIE CHUNG 07/01/18 08:58 Consult to Physician [CONS] Urgent Comment: bleeding shunt Consulting Provider: ALEIDA GAINES Physician Instructions: Reason For Exam: bleeding shunt left arm 07/01/18 09:26 Consult to Physician [CONS] Urgent Comment: Consulting Provider: ANGELA RAVI Physician Instructions: Reason For Exam: av shunt malfunction Primary care physician: [employer] Hospitalization Reason for admission: malfunctioning AV fistula Condition: Stable Hospital course: This is a 57 yo M with past medical history of hypertension, ESRD since 2010 on HD on MWF schedule, h/o papillary renal cell CA, s/p b/l nephrectomy in 04/2014, who presented to the ER on 07/01/18 due to complaints of persistent bleeding from his left arm AV fistula. Last HD prior to admission was performed 06/30/18 and after treatment there was good hemostasis. However, pt reported that he had multiple episodes of bleeding over the last few weeks, was hospitalized last week for a thrombectomy of his shunt. He developed recurrent bleeding early the morning prior to admission which prompted him to present to ER. Pt denied fever , chills nausea, vomiting, dizziness, palpitations, SOB, CP. labs showed stable Hb at 11.5. Renal consult was requested for management of ESRD/HD. The patient was also seen by vascular surgery who performed fistulogram on 07/01 that revealed severe anastomotic narrowing of 95% with subsequent angioplasty and 10 % residual narrowing. Later, patient underwent hemodialysis without difficulty. Therefore, patient is felt to receive maximal hospital benefit and will be discharged home. Disposition: DC- TO HOME OR SELFCARE - Discharge Diagnoses (1) AV shunt malfunction Status: Acute Qualifiers: Encounter type: initial encounter Qualified Code(s): T82.591A - Other mechanical complication of surgically created arteriovenous shunt, initial encounter (2) ESRD (end stage renal disease) on dialysis Status: Chronic (3) CAD (coronary artery disease) Status: Acute (4) Cardiomyopathy Status: Chronic (5) Hyperlipemia Status: Chronic (6) Hypertension Status: Chronic Core Measure Documentation - Palliative Care Palliative Care/ Comfort Measures: Not Applicable - Core Measures Any of the following diagnoses?: none Exam - Constitutional Vitals: Temp Pulse Resp BP Pulse Ox 98.1 F 85 20 100/44 97 07/02/18 11:05 07/02/18 14:45 07/02/18 11:05 07/02/18 14:45 07/02/18 09:38 General appearance: Present: no acute distress, well-nourished - EENT Eyes: Present: PERRL ENT: hearing intact, clear oral mucosa - Neck Neck: Present: supple, normal ROM - Respiratory Respiratory effort: normal Respiratory: bilateral: CTA - Cardiovascular Heart Sounds: Present: S1 & S2. Absent: rub, click - Extremities Extremities: pulses symmetrical, No edema Peripheral Pulses: within normal limits - Abdominal General gastrointestinal: Present: soft, non-tender, non-distended, normal bowel sounds Male genitourinary: Present: normal - Integumentary Integumentary: Present: clear, warm, dry - Musculoskeletal Musculoskeletal: gait normal, strength equal bilaterally - Psychiatric Psychiatric: appropriate mood/affect, intact judgment & insight - Neurologic Neurologic: CNII-XII intact, moves all extremities Plan Activity: no restrictions Weight Bearing Status: Full Weight Bearing Diet: renal Follow up with: PRIMARY CARE, [Primary Care Provider] - 3-5 Days Prescriptions: Carvedilol [Coreg] 6.25 mg PO BID #60 tablet Lisinopril [Prinivil] 5 mg PO QDAY #30 tablet Rosuvastatin Calcium [Crestor] 20 mg PO HS #30 tablet Sevelamer Carbonate [Renvela] 1,600 mg PO TIDWM #30 tablet
[2018-07-02] MEDS: COREG PO SCH ×2 (15:41→22:43)
[2018-07-02] MEDS: HALFPRIN EC PO SCH (15:49)
--- NOTE | 2018-07-02 16:30 | Event Note ---
Date: 07/02/18 Pt off the floor, when we went to see him. Pt not evaluated today. Spoke to the HD nurse. Pt's AVF worked well without bleeding. Pt for d/c later today. Okay to d/c home from a vascular surgery stand point if no further issues with bleeding. Pt should f/u in our office, in the next 1-2 weeks and call for an appt.
[2018-07-03] MEDS: COREG PO SCH (10:28)
[2018-07-03] MEDS: Renal Caps PO SCH (10:29)
[2018-07-03] MEDS: HALFPRIN EC PO SCH (10:29)
[2018-07-03 10:30] VITALS: BP 100/66
--- NOTE | 2018-07-03 11:14 | Progress Note ---
Assessment and Plan - Patient Problems (1) Malfunction of arteriovenous dialysis fistula Current Visit: Yes Status: Acute Plan to address problem: S/p angioplasty of anastomotic lesion by vascular surgery. Access has been cannulated since procedure without issues. Will continue to monitor in the outpatient setting. (2) ESRD (end stage renal disease) on dialysis Current Visit: Yes Status: Chronic Plan to address problem: Patient will resume his outpatient dialysis schedule. Stable from renal standpoint for DC. (3) Anemia in end-stage renal disease Current Visit: Yes Status: Acute Plan to address problem: Continue with appropriate Epo with dialysis sessions. (4) Hypertension Current Visit: No Status: Chronic Plan to address problem: Can continue with his current blood pressure regimen. Subjective Date of service: 07/03/18 Principal diagnosis: ESRD Interval history: No acute issues. pending DC today. Objective - Vital Signs Vital signs: Vital Signs - 12hr 07/02/18 07/03/18 07/03/18 23:28 05:49 08:00 Temperature 98.5 F 97.9 F Pulse Rate 92 H 78 Respiratory 18 17 Rate Blood Pressure 91/55 96/60 O2 Sat by Pulse 97 97 95 Oximetry 07/03/18 10:28 Temperature Pulse Rate 85 Respiratory Rate Blood Pressure 100/66 O2 Sat by Pulse Oximetry - General Appearance General appearance: well-developed, well-nourished EENT: PERRL Neck: no JVD, no thyromegaly Respiratory: Present: Clear to Ascultation, Normal Exam Cardiology: regular, normal heart rate Gastrointestinal: normal, normoactive bowel sounds Integumentary: no rash, warm and dry Neurologic: no focal deficit, no asterixis Musculoskeletal: deferred Psychiatric: mood/affect appropriate, cooperative - Lab 07/02/18 05:48 07/02/18 05:48 Most recent lab results Calcium 9.1 mg/dL (8.4-10.2) 07/02/18 05:48 - Allied health notes Allied health notes reviewed: nursing
== END 2018-07-03 11:30 | disposition home or self-care (01) | DRG 252 ==
LOC: ED 05:09 → 3A 10:35
PROVIDERS: ADMIT Hospitalist; ATTEND Hospitalist
PROC: 057F3ZZ Dilation of Left Cephalic Vein, Percutaneous Approach (ICD-10-PCS; principal; 2018-07-01)
PROC: B50W1ZZ Plain Radiography of Dialysis Shunt/Fistula using Low Osmolar Contrast (ICD-10-PCS; 2018-07-01)
PROC: 03783ZZ Dilation of Left Brachial Artery, Percutaneous Approach (ICD-10-PCS; 2018-07-01)
PROC: B50N1ZZ Plain Radiography of Left Upper Extremity Veins using Low Osmolar Contrast (ICD-10-PCS; 2018-07-01)
PROC: 5A1D70Z Performance of Urinary Filtration, Intermittent, Less than 6 Hours Per Day (ICD-10-PCS; 2018-07-02)
DX: T82.41XA Breakdown (mechanical) of vascular dialysis catheter, initial encounter (principal); N18.6 End stage renal disease; I42.9 Cardiomyopathy, unspecified; I50.22 Chronic systolic (congestive) heart failure; I13.2 Hypertensive heart and chronic kidney disease with heart failure and with stage 5 chronic kidney disease, or end stage renal disease; T82.898A Other specified complication of vascular prosthetic devices, implants and grafts, initial encounter; T82.838A Hemorrhage due to vascular prosthetic devices, implants and grafts, initial encounter; D63.1 Anemia in chronic kidney disease; Y83.8 Other surgical procedures as the cause of abnormal reaction of the patient, or of later complication, without mention of misadventure at the time of the procedure; I25.10 Atherosclerotic heart disease of native coronary artery without angina pectoris; E78.5 Hyperlipidemia, unspecified; Z79.82 Long term (current) use of aspirin; Z99.2 Dependence on renal dialysis; Z86.73 Personal history of transient ischemic attack (TIA), and cerebral infarction without residual deficits; Z87.891 Personal history of nicotine dependence; Y92.89 Other specified places as the place of occurrence of the external cause; Z79.899 Other long term (current) drug therapy; Z85.528 Personal history of other malignant neoplasm of kidney; Z90.5 Acquired absence of kidney
CPT/HCPCS: 36415; 36902; 76937; 80048; 80053; 85025; 85610; 85730; 86850; 86900; 86901; 87116; 99406; A9270-GY; C1725; C1751; C1769; C1894; J0690; J1644; J2250; J3010; J7030; Q9967

== ENCOUNTER 2018-07-12 21:10 | Inpatient (IN) | payer MEDICARE ==
[2018-07-12] MEDS ORDERED: NACL 0.9% 1000 ML 1,000 ML ONE (21:28)
[2018-07-12] MEDS ORDERED: NACL 0.9% 1000 ML 1,000 ML IV ONE (21:32)
--- NOTE | 2018-07-12 21:37 | Emergency Department Report ---
ED General Adult HPI - General Stated complaint: BLEEDING SHUNT Time Seen by Provider: 07/12/18 21:15 Source: patient, EMS - History of Present Illness Initial comments: Patient is 57 years old male with history of end-stage renal disease on hemodialysis Thursday, Thursday and Thursday. Patient received dialysis today. Patient presented to the ER via EMS after he started having bleeding from his left arm AV fistula. Per EMS report patient lost about 1 L of blood. His initial blood pressure was 66/32. Bleeding controlled by applying a proximal tourniquet and blood pressure cough. Upon resuscitation in the ER patient is to have a blood pressure showing 67/85. I immediately applied 3 sutures to the bleeding site and then the tourniquet was released was no bleeding after. Patient received a liter of fluid and his blood pressure is 92/56. He does not have any other complaint. - Related Data Previous Rx's Medication Instructions Recorded Last Taken Type Aspirin EC [Aspirin Enteric Coated 81 mg PO QDAY tablet 07/02/18 Unknown Rx TAB] AtorvaSTATin [Lipitor] 40 mg PO QHS tablet 07/02/18 Unknown Rx Bisacodyl [Dulcolax suppos] 10 mg [place] Q12H supp.rect 07/02/18 Unknown Rx Carvedilol [Coreg] 6.25 mg PO BID #60 tablet 07/02/18 Unknown Rx Folic Acid/Vit B Comp W-C [Renal 1 cap PO QDAY capsule 07/02/18 Unknown Rx Caps] Lisinopril [Prinivil] 5 mg PO QDAY #30 tablet 07/02/18 Unknown Rx Rosuvastatin Calcium [Crestor] 20 mg PO HS #30 tablet 07/02/18 Unknown Rx Sevelamer Carbonate [Renvela] 1,600 mg PO TIDWM #30 tablet 07/02/18 Unknown Rx Allergies Allergy/AdvReac Type Severity Reaction Status Date / Time No Known Allergies Allergy Verified 06/17/17 18:28 ED Review of Systems ROS: Stated complaint: BLEEDING SHUNT Other details as noted in HPI Comment: All other systems reviewed and negative Constitutional: denies: chills, fever Cardiovascular: denies: chest pain, palpitations, dyspnea on exertion Gastrointestinal: denies: abdominal pain, nausea, vomiting, diarrhea, constipation, hematemesis, melena, hematochezia Musculoskeletal: denies: back pain Neurological: denies: headache, weakness, numbness, paresthesias, confusion ED Past Medical Hx - Past Medical History Hx Hypertension: Yes Hx CVA: Yes Hx Congestive Heart Failure: Yes Hx Diabetes: No Hx Renal Disease: Yes (bilateral nephrectomy - ESRD DIALYSIS M,W,F) Hx Sickle Cell Disease: No Hx Asthma: No Hx COPD: No - Social History Smoking Status: Current Some Day Smoker - Medications Home Medications: Home Medications Medication Instructions Recorded Confirmed Last Taken Type Aspirin EC [Aspirin Enteric Coated 81 mg PO QDAY tablet 07/02/18 Unknown Rx TAB] AtorvaSTATin [Lipitor] 40 mg PO QHS tablet 07/02/18 Unknown Rx Bisacodyl [Dulcolax suppos] 10 mg VA Q12H supp.rect 07/02/18 Unknown Rx Carvedilol [Coreg] 6.25 mg PO BID #60 tablet 07/02/18 Unknown Rx Folic Acid/Vit B Comp W-C [Renal 1 cap PO QDAY capsule 07/02/18 Unknown Rx Caps] Lisinopril [Prinivil] 5 mg PO QDAY #30 tablet 07/02/18 Unknown Rx Rosuvastatin Calcium [Crestor] 20 mg PO HS #30 tablet 07/02/18 Unknown Rx Sevelamer Carbonate [Renvela] 1,600 mg PO TIDWM #30 tablet 07/02/18 Unknown Rx ED Physical Exam - General Limitations: No Limitations General appearance: alert, in no apparent distress - Head Head exam: Present: atraumatic, normocephalic - Eye Eye exam: Present: normal appearance - ENT ENT exam: Present: normal exam, normal orophraynx, mucous membranes moist - Neck Neck exam: Present: normal inspection, full ROM. Absent: tenderness, meningismus, lymphadenopathy, thyromegaly - Respiratory Respiratory exam: Present: normal lung sounds bilaterally. Absent: respiratory distress, wheezes, rales, rhonchi, chest wall tenderness, accessory muscle use, decreased breath sounds, prolonged expiratory - Cardiovascular Cardiovascular Exam: Present: regular rate, normal rhythm, normal heart sounds - GI/Abdominal GI/Abdominal exam: Present: soft, normal bowel sounds. Absent: distended, tenderness, guarding, rebound, rigid, organomegaly, mass, bruit, pulsatile mass , hernia - Extremities Exam Extremities exam: Present: normal inspection, full ROM, normal capillary refill - Back Exam Back exam: Present: normal inspection, full ROM. Absent: tenderness, CVA tenderness (R), CVA tenderness (L), muscle spasm, paraspinal tenderness, vertebral tenderness, rash noted - Neurological Exam Neurological exam: Present: alert, oriented X3, CN II-XII intact, normal gait, reflexes normal - Skin Skin exam: Present: warm, intact, normal color ED Course Vital Signs 07/12/18 07/12/18 07/12/18 21:20 21:30 21:45 Temperature 97.6 F Pulse Rate 91 H 83 75 Respiratory 20 19 13 Rate Blood Pressure 66/47 93/53 95/58 Blood Pressure 66/47 [Right] O2 Sat by Pulse 100 99 Oximetry 07/12/18 07/12/18 22:00 22:15 Temperature Pulse Rate 75 Respiratory 19 16 Rate Blood Pressure 96/63 Blood Pressure [Right] O2 Sat by Pulse 99 Oximetry - Reevaluation(s) Reevaluation #1: 07/12/18 23:24 Discussed the patient was Dr. Giordano, he advised to admit the patient to the hospital and he will follow-up with the patient. ED Medical Decision Making - Lab Data Result diagrams: 07/12/18 21:22 07/12/18 21:22 - Medical Decision Making I discussed the patient was Dr. Macdonald also, he agreed to admit the patient to the medical service. Critical Care Time: Yes Critical care time in (mins) excluding proc time.: 35 Critical care attestation.: If time is entered above; I have spent that time in minutes in the direct care of this critically ill patient, excluding procedure time. ED Disposition Clinical Impression: Hypotension, Hemorrhage of arteriovenous fistula Disposition: OP ADMIT IP TO THIS HOSP Is pt being admited?: Yes Condition: Stable
[2018-07-12] MEDS ORDERED: XYLOCAINE 2% INFILTRATI ONE (21:44)
[2018-07-12 21:51] LABS: Basophils # (Auto) 0.1 K/mm3 (0.0-0.1); Eosinophils # (Auto) 0.2 K/mm3 (0.0-0.4); Eosinophils % (Auto) 2.5 % (0.0-4.3); Hematocrit 27.1 % (35.5-45.6); Hemoglobin 9.2 gm/dl (11.8-15.2); Lymphocytes # (Auto) 3.3 K/mm3 (1.2-5.4); Lymphocytes % (Auto) 39.3 % (13.4-35.0); Mean Corpuscular HGB Conc 34 % (32-34); Mean Corpuscular Hemoglobin 36 pg (28-32); Mean Corpuscular Volume 105 fl (84-94); Monocytes # (Auto) 0.6 K/mm3 (0.0-0.8); Monocytes % (Auto) 7.1 % (0.0-7.3); Red Blood Count 2.58 M/mm3 (3.65-5.03); Red Cell Distribution Width 16.4 % (13.2-15.2)
[2018-07-12 21:52] LABS: Platelet Count 265 K/mm3 (140-440)
[2018-07-12 22:01] LABS: INR 0.99 (0.87-1.13); Partial Thromboplastin Time 24.2 Sec. (24.2-36.6)
[2018-07-12 22:09] LABS: Calcium 8.4 mg/dL (8.4-10.2)
[2018-07-12] MEDS ORDERED: TYLENOL ONE (22:10)
[2018-07-12] MEDS ORDERED: TYLENOL PO ONE (22:14)
[2018-07-12] MEDS ORDERED: HumuLIN R IV ONE (22:48)
[2018-07-12] MEDS ORDERED: NACL 0.9% 500 ML 500 ML IV ONE (22:55)
[2018-07-13] MEDS ORDERED: MORPHINE IV PRN (00:08)
[2018-07-13] MEDS ORDERED: ZOFRAN IV PRN (00:08)
[2018-07-13] MEDS ORDERED: TYLENOL PR PRN (00:09)
[2018-07-13 05:31] LABS: Hemoglobin 7.8 gm/dl (11.8-15.2); Mean Corpuscular HGB Conc 32 % (32-34); Mean Corpuscular Hemoglobin 34 pg (28-32); Mean Corpuscular Volume 106 fl (84-94); Platelet Count 218 K/mm3 (140-440); Red Blood Count 2.28 M/mm3 (3.65-5.03); Red Cell Distribution Width 16.2 % (13.2-15.2)
[2018-07-13] MEDS: HALFPRIN EC PO SCH (09:50)
[2018-07-13] MEDS: COREG PO SCH ×2 (09:50→21:45)
[2018-07-13] MEDS: Renal Caps PO SCH (09:50)
[2018-07-13] MEDS: RENVELA PO SCH ×3 (09:50→18:26)
--- NOTE | 2018-07-13 09:52 | Progress Note ---
Assessment and Plan - Bleeding from Left AV fistula site Vascular surgeon framing consultant - Anemia from bleeding Type and screen 2 units of blood She was during hemodialysis - ESRD on hemodialysis on [facility] Nephrology consult to continue with hemodialysis - Prophylaxis SCDs. Hold anticoagulation because of bleeding Subjective Date of service: 07/13/18 Principal diagnosis: bleeding from left AV fistula site, ESRD on hemodialysis on [facility] Interval history: Normal activity bleeding from the left AV fistula site Objective - Exam Narrative Exam: Constitutional: Well-nourished well-developed. In no distress Head: Normocephalic atraumatic Eyes: Pupils are equal round and reactive to light Nose: No enlarged turbinates, no septal deviation. Mouth: Moist mucous membranes. Neck: Supple no thyromegaly. No bruit. No JVD Heart: Regular rate and rhythm, S1-S2 abnormal. No rubs murmurs or gallop Lungs: Clear to auscultation bilaterally no rales or rhonchi Abdomen: Soft, nontender. Bowel sound are present. Extremities: Dressing on the left AV fistula site Neuro: Alert oriented Oriented x3. No focal sensory or motor deficit. Skin: No rashes no hyperemic spots Psychiatry: Euthymic. Calm. - Constitutional Vitals: Vital Signs - 12hr 07/12/18 07/12/18 07/12/18 22:00 22:15 22:30 Temperature Pulse Rate 75 72 75 Respiratory 19 17 16 Rate Blood Pressure 96/63 101/58 95/58 O2 Sat by Pulse 99 100 Oximetry 07/12/18 07/12/18 07/12/18 22:45 23:00 23:15 Temperature Pulse Rate 77 79 86 Respiratory 15 9 L 9 L Rate Blood Pressure 92/61 104/55 87/63 O2 Sat by Pulse 59 L 100 96 Oximetry 07/12/18 07/12/18 07/13/18 23:30 23:45 00:00 Temperature Pulse Rate 77 77 72 Respiratory 19 16 14 Rate Blood Pressure 97/59 91/56 100/55 O2 Sat by Pulse 100 100 100 Oximetry 07/13/18 07/13/18 07/13/18 00:05 00:15 00:30 Temperature Pulse Rate 74 70 77 Respiratory 16 16 19 Rate Blood Pressure 100/55 93/57 100/50 O2 Sat by Pulse 100 98 99 Oximetry 07/13/18 07/13/18 07/13/18 01:00 01:15 01:30 Temperature Pulse Rate 72 70 74 Respiratory 15 16 13 Rate Blood Pressure 94/57 94/62 104/62 O2 Sat by Pulse 99 99 96 Oximetry 07/13/18 07/13/18 07/13/18 01:45 02:00 02:30 Temperature Pulse Rate 73 88 75 Respiratory 15 18 15 Rate Blood Pressure 95/63 95/63 95/58 O2 Sat by Pulse 100 99 99 Oximetry 07/13/18 07/13/18 07/13/18 02:41 03:07 05:22 Temperature 97.7 F 98.4 F Pulse Rate 90 77 Respiratory 15 18 18 Rate Blood Pressure 95/58 99/57 90/57 O2 Sat by Pulse 99 99 Oximetry - Labs CBC & Chem 7: 07/13/18 04:10 07/12/18 21:22 Labs: Abnormal lab results 07/12/18 07/12/18 07/12/18 Range/Units 21:22 21:22 23:13 WBC (4.5-11.0) K/mm3 RBC 2.58 L (3.65-5.03) M/mm3 Hgb 9.2 L (11.8-15.2) gm/dl Hct 27.1 L (35.5-45.6) % MCV 105 H (84-94) fl MCH 36 H (28-32) pg RDW 16.4 H (13.2-15.2) % Lymph % (Auto) 39.3 H (13.4-35.0) % Creatinine 6.2 H (0.8-1.5) mg/dL Glucose 341 H (75-100) mg/dL POC Glucose 154 H (70-105) 07/13/18 Range/Units 04:10 WBC 13.3 H (4.5-11.0) K/mm3 RBC 2.28 L (3.65-5.03) M/mm3 Hgb 7.8 L (11.8-15.2) gm/dl Hct 24.0 L (35.5-45.6) % MCV 106 H (84-94) fl MCH 34 H (28-32) pg RDW 16.2 H (13.2-15.2) % Lymph % (Auto) (13.4-35.0) % Creatinine (0.8-1.5) mg/dL Glucose (75-100) mg/dL POC Glucose (70-105)
[2018-07-13] MEDS: ZESTRIL PO SCH (09:57)
[2018-07-13] MEDS ORDERED: DULCOLAX PR SCH (10:00)
[2018-07-13] MEDS ORDERED: DULCOLAX PO PRN (10:29)
--- NOTE | 2018-07-13 12:46 | Consultation ---
History of Present Illness - Reason for Consult Consult date: 07/13/18 Recurrent Bleeding from Left Upper Extremity AV Fistula - History of Present Illness This patient is a 57-year-old male was admitted via the emergency room on 07/12/2018 due to recurrent bleeding from his left upper extremity AV fistula. The patient is known to our service. Dr. Esteves created a left arm radiocephalic (Ginger) AV fistula in 2010. Recently the patient developed recurrent bleeding from the left arm AV fistula. He states he status post multiple fistulograms at the access center (approximately every 3 months). He was recently hospitalized at [facility] where a fistulogram was performed. He was discharged, only to develop recurrent bleeding and was subsequently admitted to [facility] for similar episode. Our service was consulted. A fistulogram was performed on 07/03/2018. He was noted have a significant inflow stenosis. This was angioplastied with significant improvement to his thrill postoperatively. His fistula was subsequently accessed for hemodialysis without issue. He was later discharged home. His continued eased access without significant issue until yesterday. The patient reports developing a "scab"over the midportion of his AV fistula. The scab was disrupted yesterday and he began to bleed. He was taken to the emergency room where his since been admitted. The emergency room physician placed several single interrupted Prolene sutures and the hemorrhage was controlled. A vascular surgery consult has been requested to further evaluate. Past History Past Medical History: dialysis, ESRD, hypertension, hyperlipidemia, stroke Past Surgical History: Other (left Ginger AV fistula, previous permacath placement, multiple fistulograms) Social history: no significant social history Family history: no significant family history Medications and Allergies Allergies Allergy/AdvReac Type Severity Reaction Status Date / Time No Known Allergies Allergy Verified 06/17/17 18:28 Home Medications Medication Instructions Recorded Confirmed Last Taken Type Aspirin EC [Aspirin Enteric Coated 81 mg PO QDAY tablet 07/02/18 Unknown Rx TAB] AtorvaSTATin [Lipitor] 40 mg PO QHS tablet 07/02/18 Unknown Rx Bisacodyl [Dulcolax suppos] 10 mg MS Q12H supp.rect 07/02/18 Unknown Rx Carvedilol [Coreg] 6.25 mg PO BID #60 tablet 07/02/18 Unknown Rx Folic Acid/Vit B Comp W-C [Renal 1 cap PO QDAY capsule 07/02/18 Unknown Rx Caps] Lisinopril [Prinivil] 5 mg PO QDAY #30 tablet 07/02/18 Unknown Rx Rosuvastatin Calcium [Crestor] 20 mg PO HS #30 tablet 07/02/18 Unknown Rx Sevelamer Carbonate [Renvela] 1,600 mg PO TIDWM #30 tablet 07/02/18 Unknown Rx Active Meds: Active Medications Acetaminophen (Tylenol) 650 mg MS Q4H PRN PRN Reason: Fever >101 Aspirin (Halfprin Ec) 81 mg PO QDAY [facility] Last Admin: 07/13/18 09:50 Dose: 81 mg Atorvastatin Calcium (Lipitor) 40 mg PO QHS [facility] Bisacodyl (Dulcolax) 10 mg PO QDAY PRN PRN Reason: Constipation Carvedilol (Coreg) 6.25 mg PO BID [facility] Last Admin: 07/13/18 09:50 Dose: 6.25 mg Lisinopril (Zestril) 5 mg PO QDAY [facility] Last Admin: 07/13/18 09:57 Dose: 5 mg Morphine Sulfate (Morphine) 2 mg IV Q3H PRN PRN Reason: Pain, Moderate (4-6) Multivit/Ca Carb/B Cmplx/FA/Prenat (Renal Caps) 1 cap PO QDAY [facility] Last Admin: 07/13/18 09:50 Dose: 1 cap Ondansetron HCl (Zofran) 4 mg IV Q8H PRN PRN Reason: Nausea And Vomiting Sevelamer Carbonate (Renvela) 1,600 mg PO TIDWM [facility] Last Admin: 07/13/18 09:50 Dose: Not Given Review of Systems All systems: negative Exam - Constitutional Vitals: Temp Pulse Resp BP Pulse Ox 98.4 F 75 20 85/50 96 07/13/18 11:00 07/13/18 11:00 07/13/18 11:00 07/13/18 11:00 07/13/18 11:00 General appearance: Present: no acute distress - EENT Eyes: Present: EOM intact ENT: hearing intact - Neck Neck: Present: supple - Respiratory Respiratory effort: normal - Extremities Extremities: no ischemia, normal temperature, abnormal (left upper extremity bandage removed. He has a palpable thrill (stronger at the arterial anastomosis , but palpable along the course of the fistula) he has multiple single interrupted Prolene sutures over the pseudoaneurysm portion of the fistula in the mid forearm. There is no active bleeding appreciated. There is no erythema.) - Psychiatric Psychiatric: appropriate mood/affect, intact judgment & insight, cooperative - Neurologic Neurologic: no focal deficits Results - Labs CBC & Chem 7: 07/13/18 04:10 07/12/18 21:22 Labs: Abnormal lab results 07/12/18 07/12/18 07/12/18 Range/Units 21:22 21:22 23:13 WBC (4.5-11.0) K/mm3 RBC 2.58 L (3.65-5.03) M/mm3 Hgb 9.2 L (11.8-15.2) gm/dl Hct 27.1 L (35.5-45.6) % MCV 105 H (84-94) fl MCH 36 H (28-32) pg RDW 16.4 H (13.2-15.2) % Lymph % (Auto) 39.3 H (13.4-35.0) % Creatinine 6.2 H (0.8-1.5) mg/dL Glucose 341 H (75-100) mg/dL POC Glucose 154 H (70-105) 07/13/18 Range/Units 04:10 WBC 13.3 H (4.5-11.0) K/mm3 RBC 2.28 L (3.65-5.03) M/mm3 Hgb 7.8 L (11.8-15.2) gm/dl Hct 24.0 L (35.5-45.6) % MCV 106 H (84-94) fl MCH 34 H (28-32) pg RDW 16.2 H (13.2-15.2) % Lymph % (Auto) (13.4-35.0) % Creatinine (0.8-1.5) mg/dL Glucose (75-100) mg/dL POC Glucose (70-105) Assessment and Plan This patient presented with recurrent bleeding from his left arm AV fistula. He has an ulcerated portion of the AV fistula. The bleeding was controlled by sutures which were placed by the ER physician. The patient is status post multiple fistulograms and the recent past. This in combination with repeated same site access likely resulted in ulcer formation. Suspect the patient will require permacath placement to allow the fistula to rest. Consider converting his AV fistula to the upper arm with the brachial artery anastomosis, as an outpatient. Discussed with the patient states understanding and has agreed to proceed. - Patient Problems (1) Malfunction of arteriovenous dialysis fistula Current Visit: No Status: Acute (2) CVA (cerebral vascular accident) Current Visit: No Status: Chronic (3) ESRD (end stage renal disease) on dialysis Current Visit: No Status: Chronic (4) CAD (coronary artery disease) Current Visit: No Status: Acute (5) Hyperlipemia Current Visit: No Status: Chronic (6) Hypertension Current Visit: No Status: Chronic
[2018-07-13] MEDS ORDERED: NON-FORMULARY (Rosuvastatin Calcium [Crestor] 20 MG) PO SCH (22:00)
[2018-07-14 05:42] LABS: Basophils # (Auto) 0.1 K/mm3 (0.0-0.1); Basophils % (Auto) 0.9 % (0.0-1.8); Eosinophils # (Auto) 0.6 K/mm3 (0.0-0.4); Eosinophils % (Auto) 6.7 % (0.0-4.3); Hemoglobin 6.3 gm/dl (11.8-15.2); Lymphocytes # (Auto) 3.4 K/mm3 (1.2-5.4); Lymphocytes % (Auto) 37.9 % (13.4-35.0); Mean Corpuscular HGB Conc 33 % (32-34); Mean Corpuscular Hemoglobin 34 pg (28-32); Mean Corpuscular Volume 105 fl (84-94); Monocytes # (Auto) 0.7 K/mm3 (0.0-0.8); Monocytes % (Auto) 8.4 % (0.0-7.3); Platelet Count 186 K/mm3 (140-440); Red Blood Count 1.82 M/mm3 (3.65-5.03); Red Cell Distribution Width 16.2 % (13.2-15.2)
[2018-07-14 06:00] LABS: Hematocrit 19.2 % (35.5-45.6)
[2018-07-14 06:01] LABS: Albumin 3.3 g/dL (3.9-5); Calcium 8.2 mg/dL (8.4-10.2)
[2018-07-14 06:50] LABS: Hemoglobin 6.5 gm/dl (11.8-15.2)
[2018-07-14 07:10] LABS: Hematocrit 19.9 % (35.5-45.6)
[2018-07-14] MEDS ORDERED: HEPARIN/NS 5000 UNIT/500ML(CATH LAB) 500 ML IR ONE (07:37)
[2018-07-14] MEDS ORDERED: SUBLIMAZE ONE (07:37)
[2018-07-14] MEDS ORDERED: HEPARIN 10,000 UNITS/10 ML ONE (07:37)
[2018-07-14] MEDS ORDERED: VERSED ONE (07:37)
[2018-07-14] MEDS ORDERED: XYLOCAINE 2% INFILTRATI ONE (07:38)
[2018-07-14] MEDS ORDERED: NACL 0.9% 250ML 250 ML ONE (07:54)
--- NOTE | 2018-07-14 08:50 | Operative Report ---
Operative Report Operative Report: Exam: Ultrasound and fluoroscopic guided placement of tunneled hemodialysis catheter Clinical indication: Patient with a history of end-stage renal disease on hemodialysis who needs revision of his fistula Date: 07/14/2018 Procedure: Following an explanation of the risks, benefits and alternatives; written informed consent was obtained. Patient was brought to the angiographic suite and placed in supine position on the examination table. Initial ultrasound evaluation of the neck demonstrated widely patent right internal jugular vein. The patient's right neck and chest wall were prepped and draped in the usual sterile fashion. 1% lidocaine was used for anesthesia. Under ultrasound guidance, the right internal jugular vein was cannulated with a 7 cm 18-gauge needle. A 0.035 guidewire was then advanced into the IVC under fluoroscopy to document intervenous positioning. The needle was removed. An appropriate catheter exit site was chosen along the lateral right chest wall. 1% lidocaine was used for anesthesia at the catheter exit site and along the tunnel tract. A Bard 23 send meter glidepath tunneled hemodialysis catheter was then tunneled antegrade from the catheter exit site to the venotomy site. Following serial dilation over the guidewire under fluoroscopy, a 15 Mongolian peel -away sheath was placed over the guidewire under fluoroscopy and advanced centrally. The trocar and guidewire were removed and the catheter inserted through the peel-away sheath and position the tip in the proximal right atrium. The peel-away sheath was then removed. Both ports flushed and aspirated easily and were then locked with appropriate volumes of heparin. The venotomy was closed using 4-0 Vicryl suture and Dermabond. 4-0 Vicryl suture and Dermabond was also applied to the catheter exit site. Sterile dressings were then applied. The patient tolerated the procedure well. There were no immediate post procedure complications. Conscious sedation was performed under the guidance of radiologic nursing. Continuous cardiopulmonary monitoring was utilized. Impression: 1) Ultrasound and fluoroscopic guided placement of a Bard 23 cm Glidepath tunneled hemodialysis catheter via the right internal jugular vein.
[2018-07-14] MEDS ORDERED: NACL 0.9% 100 ML IV PRN (09:24)
--- NOTE | 2018-07-14 09:26 | Consultation ---
History of Present Illness - Reason for Consult Consult date: 07/14/18 end stage renal disease Requesting physician: CASSANDRA VALDEZ - History of Present Illness This is a 57 yo M with past medical history of hypertension, ESRD since 2010 on HD on MWF schedule, h/o papillary renal cell CA, s/p b/l nephrectomy in 04/2014, who presented to the ER due to complaints of bleeding from his left arm AV fistula. pt is brought in by EMS, who reports patient lost about 1 L of blood. Initial BP was 66/32 in ER. Bleeding controlled by applying a proximal tourniquet and BP cuff. 3 sutures to the bleeding site were applied and then the tourniquet was released was no bleeding after. BP improved to 92/56 with IVF bolus. Pt was also evaluated by vascular surgery, pt recently had fistulogram on 07/03/2018, when he was noted to have significant inflow stenosis , which resolved s/p angioplasty. AVF was subsequently accessed for hemodialysis without issue until 07/12. Pt reports that he developed a scab over his AV fistula. The scab was disrupted on Thursday and he began to bleed. Pt denies fever, chills nausea, vomiting, dizziness, palpitations, SOB, CP. labs showed down trending Hb from 9.2 to 6.5, 1 PRBC is pending. Renal consult is requested for management of ESRD/HD Past History Past Medical History: dialysis, ESRD, hypertension, hyperlipidemia, stroke Past Surgical History: Other (left Ginger AV fistula, previous permacath placement, multiple fistulograms) Social history: no significant social history Family history: no significant family history Medications and Allergies Allergies Allergy/AdvReac Type Severity Reaction Status Date / Time No Known Allergies Allergy Verified 06/17/17 18:28 Home Medications Medication Instructions Recorded Confirmed Last Taken Type Aspirin EC [Aspirin Enteric Coated 81 mg PO QDAY tablet 07/02/18 07/13/18 Unknown Rx TAB] AtorvaSTATin [Lipitor] 40 mg PO QHS tablet 07/02/18 07/13/18 Unknown Rx Bisacodyl [Dulcolax suppos] 10 mg [place] Q12H supp.rect 07/02/18 07/13/18 Unknown Rx Carvedilol [Coreg] 6.25 mg PO BID #60 tablet 07/02/18 07/13/18 Unknown Rx Folic Acid/Vit B Comp W-C [Renal 1 cap PO QDAY capsule 07/02/18 07/13/18 Unknown Rx Caps] Lisinopril [Prinivil] 5 mg PO QDAY #30 tablet 07/02/18 07/13/18 Unknown Rx Rosuvastatin Calcium [Crestor] 20 mg PO HS #30 tablet 07/02/18 07/13/18 Unknown Rx Sevelamer Carbonate [Renvela] 1,600 mg PO TIDWM #30 tablet 07/02/18 07/13/18 Unknown Rx Active Meds: Active Medications Acetaminophen (Tylenol) 650 mg [place] Q4H PRN PRN Reason: Fever >101 Aspirin (Halfprin Ec) 81 mg PO QDAY [facility] Last Admin: 07/13/18 09:50 Dose: 81 mg Atorvastatin Calcium (Lipitor) 40 mg PO QHS [facility] Last Admin: 07/13/18 21:44 Dose: 40 mg Bisacodyl (Dulcolax) 10 mg PO QDAY PRN PRN Reason: Constipation Carvedilol (Coreg) 6.25 mg PO BID [facility] Last Admin: 07/13/18 21:45 Dose: Not Given Sodium Chloride (Nacl 0.9% 500 Ml) 500 mls @ 0 mls/hr IV ONCE ONE Stop: 07/14/18 11:01 Lisinopril (Zestril) 5 mg PO QDAY [facility] Last Admin: 07/13/18 09:57 Dose: 5 mg Morphine Sulfate (Morphine) 2 mg IV Q3H PRN PRN Reason: Pain, Moderate (4-6) Multivit/Ca Carb/B Cmplx/FA/Prenat (Renal Caps) 1 cap PO QDAY [facility] Last Admin: 07/13/18 09:50 Dose: 1 cap Ondansetron HCl (Zofran) 4 mg IV Q8H PRN PRN Reason: Nausea And Vomiting Sevelamer Carbonate (Renvela) 1,600 mg PO TIDWM [facility] Last Admin: 07/13/18 18:26 Dose: 1,600 mg Review of Systems All systems: negative Constitutional: fatigue, weakness Hematologic/Lymphatic: easy bleeding Exam - Vital Signs Vital signs: Vital Signs Temp Pulse Resp BP Pulse Ox 97.6 F 91 H 18 66/47 100 07/12/18 21:20 07/12/18 21:20 07/12/18 21:20 07/12/18 21:20 07/12/18 21:20 - General Appearance General appearance: well-developed, well-nourished, appears stated age EENT: ATNC, PERRL, mucous membranes moist Neck: Present: neck supple, Other (Rt IJ permcath ) Respiratory: Clear to Ascultation Heart: regular, S1S2 Gastrointestinal: Present: normoactive bowel sounds Integumentary: no rash, other (no edema ) Neurologic: no focal deficit, alert and oriented x3, strength 5/5, CN 3-12 intact Psychiatric: mood/affect appropriate, cooperative Results - Lab Results 07/14/18 06:22 07/14/18 04:50 Most recent lab results Calcium 8.2 mg/dL (8.4-10.2) L 07/14/18 04:50 Assessment and Plan - Patient Problems (1) Hemorrhage of arteriovenous fistula Current Visit: Yes Status: Acute Plan to address problem: s/p hemostasis after sutures applied. no further bleeding noted. As per vascular surgery, pt has ulcerated portion of the AV fistula and he will require converting his AV fistula to the upper arm with the brachial artery anastomosis, as an outpatient. S/p permcath placement (2) Hypotension Current Visit: Yes Status: Acute Plan to address problem: BP improved s/p IVF bolus. awaiting 1PRBC (3) Anemia in end-stage renal disease Current Visit: No Status: Acute Plan to address problem: start EPO with HD (4) ESRD (end stage renal disease) on dialysis Current Visit: No Status: Chronic Plan to address problem: cont HD on MWF schedule, can transfuse PRBC with HD
[2018-07-14] MEDS: COREG PO SCH ×2 (10:40→23:31)
[2018-07-14] MEDS: RENVELA PO SCH ×3 (10:40→18:05)
[2018-07-14] MEDS: HALFPRIN EC PO SCH (10:40)
[2018-07-14] MEDS: Renal Caps PO SCH (10:41)
[2018-07-14] MEDS: ZESTRIL PO SCH (10:41)
[2018-07-14] MEDS ORDERED: NACL 0.9% 500 ML 500 ML IV ONE (11:00)
[2018-07-14] MEDS: TYLENOL PO PRN ×2 (13:24→23:22)
--- NOTE | 2018-07-14 15:06 | Progress Note ---
Assessment and Plan Assessment and plan: Patient is 57 years old male with history of end-stage renal disease on hemodialysis Thursday, Thursday and Thursday. Patient received dialysis today. Patient presented to the ER via EMS after he started having bleeding from his left arm AV fistula. Per EMS report patient lost about 1 L of blood. His initial blood pressure was 66/32. Bleeding controlled by applying a proximal tourniquet and blood pressure cough. Upon resuscitation in the ER patient is to have a blood pressure showing 67/85. I immediately applied 3 sutures to the bleeding site and then the tourniquet was released was no bleeding after. Patient received a liter of fluid and his blood pressure is 92/56. He does not have any other complaint. - Bleeding from Left AV fistula site Vascular surgeon sap plant maintenance consultant And evaluated patient with hemostasis achieve with suturing. Outpatient AV Fistula conversion outpatient. - Anemia from bleeding Type and screen AND TRANFUSE 1 units of blood With hemodialysis -Hypotension Now resolved - ESRD on hemodialysis on MWF Nephrology consult to continue with hemodialysis s/p permcath placement - Prophylaxis SCDs. Hold anticoagulation because of bleeding -Anticipate discharge in am if H/H STABLE -Discussed with the patient and also with the [employer]. History Interval history: Patient seen and examined, reports feeling "cold", improved with adjusting thermostat. No other complaints noted. No report of hematuria, melana noted, and no further bleed from av graft Hospitalist Physical - Physical exam Narrative exam: Constitutional: Well-nourished well-developed. In no distress Head: Normocephalic atraumatic Eyes: Pupils are equal round and reactive to light Nose: No enlarged turbinates, no septal deviation. Mouth: Moist mucous membranes. Neck: Supple no thyromegaly. No bruit. No JVD Heart: Regular rate and rhythm, S1-S2 abnormal. No rubs murmurs or gallop Lungs: Clear to auscultation bilaterally no rales or rhonchi Abdomen: Soft, nontender. Bowel sound are present. Extremities: Dressing on the left AV fistula site Neuro: Alert oriented Oriented x3. No focal sensory or motor deficit. Skin: No rashes no hyperemic spots Psychiatry: Euthymic. Calm. - Constitutional Vitals: Temp Pulse Resp BP Pulse Ox 99.5 F 98 H 22 112/61 98 07/14/18 12:35 07/14/18 12:35 07/14/18 12:35 07/14/18 12:35 07/14/18 12:35 General appearance: Present: no acute distress Results - Labs CBC & Chem 7: 07/14/18 06:22 07/14/18 04:50 Labs: Laboratory Last Values WBC 8.8 K/mm3 (4.5-11.0) 07/14/18 04:50 RBC 1.82 M/mm3 (3.65-5.03) L 07/14/18 04:50 Hgb 6.5 gm/dl (11.8-15.2) L 07/14/18 06:22 Hct 19.9 % (35.5-45.6) L* 07/14/18 06:22 MCV 105 fl (84-94) H 07/14/18 04:50 MCH 34 pg (28-32) H 07/14/18 04:50 MCHC 33 % (32-34) 07/14/18 04:50 RDW 16.2 % (13.2-15.2) H 07/14/18 04:50 Plt Count 186 K/mm3 (140-440) 07/14/18 04:50 Lymph % (Auto) 37.9 % (13.4-35.0) H 07/14/18 04:50 [place] % (Auto) 8.4 % (0.0-7.3) H 07/14/18 04:50 Eos % (Auto) 6.7 % (0.0-4.3) H 07/14/18 04:50 Baso % (Auto) 0.9 % (0.0-1.8) 07/14/18 04:50 Lymph # 3.4 K/mm3 (1.2-5.4) 07/14/18 04:50 [place] # 0.7 K/mm3 (0.0-0.8) 07/14/18 04:50 Eos # 0.6 K/mm3 (0.0-0.4) H 07/14/18 04:50 Baso # 0.1 K/mm3 (0.0-0.1) 07/14/18 04:50 Seg Neutrophils % 46.1 % (40.0-70.0) 07/14/18 04:50 Seg Neutrophils # 4.1 K/mm3 (1.8-7.7) 07/14/18 04:50 PT 13.6 Sec. (12.2-14.9) 07/12/18 21:22 INR 0.99 (0.87-1.13) 07/12/18 21:22 APTT 24.2 Sec. (24.2-36.6) 07/12/18 21:22 Sodium 140 mmol/L (137-145) 07/14/18 04:50 Potassium 3.7 mmol/L (3.6-5.0) 07/14/18 04:50 Chloride 99.1 mmol/L (98-107) 07/14/18 04:50 Carbon Dioxide 26 mmol/L (22-30) 07/14/18 04:50 Anion Gap 19 mmol/L 07/14/18 04:50 BUN 29 mg/dL (9-20) H 07/14/18 04:50 Creatinine 9.1 mg/dL (0.8-1.5) H 07/14/18 04:50 Estimated GFR 7 ml/min 07/14/18 04:50 BUN/Creatinine Ratio 3 % 07/14/18 04:50 Glucose 85 mg/dL (75-100) 07/14/18 04:50 POC Glucose 154 (70-105) H 07/12/18 23:13 Calcium 8.2 mg/dL (8.4-10.2) L 07/14/18 04:50 Total Bilirubin 0.20 mg/dL (0.1-1.2) 07/14/18 04:50 AST 22 units/L (5-40) 07/14/18 04:50 ALT 12 units/L (7-56) 07/14/18 04:50 Alkaline Phosphatase 92 units/L (35-129) 07/14/18 04:50 Total Protein 6.0 g/dL (6.3-8.2) L 07/14/18 04:50 Albumin 3.3 g/dL (3.9-5) L 07/14/18 04:50 Albumin/Globulin Ratio 1.2 % 07/14/18 04:50 Blood Type O POSITIVE 07/12/18 21:22 Antibody Screen Negative 07/12/18 21:22 Crossmatch See Detail 07/12/18 21:22
[2018-07-15 05:35] LABS: Hematocrit 20.8 % (35.5-45.6); Hemoglobin 6.8 gm/dl (11.8-15.2); Mean Corpuscular HGB Conc 33 % (32-34); Mean Corpuscular Hemoglobin 33 pg (28-32); Mean Corpuscular Volume 100 fl (84-94); Platelet Count 145 K/mm3 (140-440); Red Blood Count 2.08 M/mm3 (3.65-5.03); Red Cell Distribution Width 18.4 % (13.2-15.2)
[2018-07-15 05:54] LABS: Calcium 8.2 mg/dL (8.4-10.2)
[2018-07-15] MEDS: RENVELA PO SCH ×3 (08:00→17:00)
[2018-07-15] MEDS: Renal Caps PO SCH (10:00)
[2018-07-15] MEDS: ZESTRIL PO SCH (11:30)
[2018-07-15] MEDS: COREG PO SCH ×2 (11:30→21:49)
[2018-07-15] MEDS: HALFPRIN EC PO SCH (11:31)
[2018-07-15] MEDS ORDERED: NACL 0.9% 500 ML 500 ML IV ONE (13:00)
[2018-07-15] MEDS: ROCEPHIN/NS 1 GM/50 ML 1 GM/50 ML BAG IV SCH (13:39)
--- NOTE | 2018-07-15 14:28 | Progress Note ---
Assessment and Plan 57 year old male with ESRD with left radiocephalic AVF with recurrent bleeding episodes. Patient failed conservative care with fistulogram with recurrent bleeding. Patient will need AVF revision with conversion to brachiocephalic AVF and ligation of radiocephalic AVF. Discussed with Dr. Mcfarland who will plan for dialysis today in preparation for AVF revision tomorrow. NPO after MN. Subjective Date of service: 07/15/18 Principal diagnosis: bleeding from left AV fistula site, ESRD on hemodialysis on MWF Interval history: Discussed AVF revision with the patient. Radiocephalic AVF has weak thrill. Sutures in place. Doing well. Understands need for revision. Objective - Constitutional Vitals: Vital Signs - 12hr 07/15/18 07/15/18 06:18 11:02 Temperature 100.9 F H 98.8 F Pulse Rate 101 H 90 Respiratory 16 18 Rate Blood Pressure 101/50 95/58 O2 Sat by Pulse 97 95 Oximetry General appearance: Present: no acute distress - EENT Eyes: EOM intact ENT: hearing intact - Respiratory Respiratory effort: normal Extremities: normal temperature, normal color - Psychiatric Psychiatric: appropriate mood/affect, cooperative - Labs CBC & Chem 7: 07/15/18 04:22 07/15/18 04:22 Labs: Abnormal lab results 07/12/18 07/15/18 07/15/18 Range/Units 21:22 04:22 04:22 WBC 19.3 H (4.5-11.0) K/mm3 RBC 2.08 L (3.65-5.03) M/mm3 Hgb 6.8 L (11.8-15.2) gm/dl Hct 20.8 L (35.5-45.6) % MCV 100 H (84-94) fl MCH 33 H (28-32) pg RDW 18.4 H (13.2-15.2) % Chloride 97.7 L (98-107) mmol/L Creatinine 5.6 H (0.8-1.5) mg/dL Calcium 8.2 L (8.4-10.2) mg/dL Crossmatch See Detail
--- NOTE | 2018-07-15 14:37 | Progress Note ---
Assessment and Plan Assessment and plan: Patient is 57 years old male with history of end-stage renal disease on hemodialysis Thursday, Thursday and Thursday. Patient received dialysis today. Patient presented to the ER via EMS after he started having bleeding from his left arm AV fistula. Per EMS report patient lost about 1 L of blood. His initial blood pressure was 66/32. Bleeding controlled by applying a proximal tourniquet and blood pressure cough. Upon resuscitation in the ER patient is to have a blood pressure showing 67/85. I immediately applied 3 sutures to the bleeding site and then the tourniquet was released was no bleeding after. Patient received a liter of fluid and his blood pressure is 92/56. He does not have any other complaint. - Bleeding from Left AV fistula site Vascular surgeon ent consultant And evaluated patient with hemostasis achieve with suturing. Outpatient AV Fistula revision plan for tomorrow. Patient failed conservative care with fistulogram with recurrent bleeding Vascular input noted SIRS: Eval for sepsis, Start emperic abx considering recent procedure Check cultures. - Anemia from bleeding Give additional one unit for total of 2 units, monitor H/H -Hypotension Now resolved - ESRD on hemodialysis on MWF Nephrology consult to continue with hemodialysis s/p permcath placement - Prophylaxis SCDs. Hold anticoagulation because of bleeding -Anticipate discharge in am if H/H STABLE -Discussed with the patient and also with the Senior Product Development Manager. History Interval history: Patient seen and examined, no new complaints today. Hospitalist Physical - Physical exam Narrative exam: Constitutional: Well-nourished well-developed. In no distress Head: Normocephalic atraumatic Eyes: Pupils are equal round and reactive to light Nose: No enlarged turbinates, no septal deviation. Mouth: Moist mucous membranes. Neck: Supple no thyromegaly. No bruit. No JVD Heart: Regular rate and rhythm, S1-S2 abnormal. No rubs murmurs or gallop Lungs: Clear to auscultation bilaterally no rales or rhonchi Abdomen: Soft, nontender, Bowel sound are present. Extremities: Dressing on the left AV fistula site. permacath to right chest Neuro: Alert oriented Oriented x3. No focal sensory or motor deficit. Skin: No rashes no hyperemic spots Psychiatry: Euthymic. Calm. - Constitutional Vitals: Temp Pulse Resp BP Pulse Ox 98.8 F 90 18 95/58 95 07/15/18 11:02 07/15/18 11:02 07/15/18 11:02 07/15/18 11:02 07/15/18 11:02 General appearance: Present: no acute distress Results - Labs CBC & Chem 7: 07/15/18 04:22 07/15/18 04:22 Labs: Laboratory Last Values WBC 19.3 K/mm3 (4.5-11.0) H 07/15/18 04:22 RBC 2.08 M/mm3 (3.65-5.03) L 07/15/18 04:22 Hgb 6.8 gm/dl (11.8-15.2) L 07/15/18 04:22 Hct 20.8 % (35.5-45.6) L 07/15/18 04:22 MCV 100 fl (84-94) H 07/15/18 04:22 MCH 33 pg (28-32) H 07/15/18 04:22 MCHC 33 % (32-34) 07/15/18 04:22 RDW 18.4 % (13.2-15.2) H 07/15/18 04:22 Plt Count 145 K/mm3 (140-440) 07/15/18 04:22 Lymph % (Auto) 37.9 % (13.4-35.0) H 07/14/18 04:50 Gregory % (Auto) 8.4 % (0.0-7.3) H 07/14/18 04:50 Eos % (Auto) 6.7 % (0.0-4.3) H 07/14/18 04:50 Baso % (Auto) 0.9 % (0.0-1.8) 07/14/18 04:50 Lymph # 3.4 K/mm3 (1.2-5.4) 07/14/18 04:50 Gregory # 0.7 K/mm3 (0.0-0.8) 07/14/18 04:50 Eos # 0.6 K/mm3 (0.0-0.4) H 07/14/18 04:50 Baso # 0.1 K/mm3 (0.0-0.1) 07/14/18 04:50 Seg Neutrophils % 46.1 % (40.0-70.0) 07/14/18 04:50 Seg Neutrophils # 4.1 K/mm3 (1.8-7.7) 07/14/18 04:50 PT 13.6 Sec. (12.2-14.9) 07/12/18 21:22 INR 0.99 (0.87-1.13) 07/12/18 21:22 APTT 24.2 Sec. (24.2-36.6) 07/12/18 21:22 Sodium 137 mmol/L (137-145) 07/15/18 04:22 Potassium 3.9 mmol/L (3.6-5.0) 07/15/18 04:22 Chloride 97.7 mmol/L (98-107) L 07/15/18 04:22 Carbon Dioxide 27 mmol/L (22-30) 07/15/18 04:22 Anion Gap 16 mmol/L 07/15/18 04:22 BUN 13 mg/dL (9-20) 07/15/18 04:22 Creatinine 5.6 mg/dL (0.8-1.5) H 07/15/18 04:22 Estimated GFR 13 ml/min 07/15/18 04:22 BUN/Creatinine Ratio 2 % 07/15/18 04:22 Glucose 80 mg/dL (75-100) 07/15/18 04:22 POC Glucose 154 (70-105) H 07/12/18 23:13 Lactic Acid 1.80 mmol/L (0.7-2.0) 07/15/18 10:41 Calcium 8.2 mg/dL (8.4-10.2) L 07/15/18 04:22 Total Bilirubin 0.20 mg/dL (0.1-1.2) 07/14/18 04:50 AST 22 units/L (5-40) 07/14/18 04:50 ALT 12 units/L (7-56) 07/14/18 04:50 Alkaline Phosphatase 92 units/L (35-129) 07/14/18 04:50 Total Protein 6.0 g/dL (6.3-8.2) L 07/14/18 04:50 Albumin 3.3 g/dL (3.9-5) L 07/14/18 04:50 Albumin/Globulin Ratio 1.2 % 07/14/18 04:50 Blood Type O POSITIVE 07/12/18 21:22 Antibody Screen Negative 07/12/18 21:22 Crossmatch See Detail 07/12/18 21:22
[2018-07-15] MEDS ORDERED: NACL 0.9 (PRIMING MACHINE ONLY DIALYSIS) MC ONE (16:13)
--- NOTE | 2018-07-15 17:14 | Anesthesia Consultation ---
Anesthesia Consult and Med Hx Date of service: 07/15/18 - Airway Anesthetic Teeth Evaluation: Poor ROM Head & Neck: Adequate Mental/Hyoid Distance: Adequate Mallampati Class: Class II Intubation Access Assessment: Probably Good - Pulmonary Exam CTA: Yes - Cardiac Exam Cardiac Exam: RRR - Pre-Operative Health Status ASA Pre-Surgery Classification: ASA4 Proposed Anesthetic Plan: General - Pulmonary Hx Smoking: Yes Hx Asthma: No COPD: No Hx Pneumonia: No - Cardiovascular System Hx Hypertension: Yes Hx Coronary Artery Disease: Yes (non-obstructive small vessel disease on 2015 cath) - Central Nervous System CVA: Yes Hx Psychiatric Problems: No - Endocrine Hx Renal Disease: Yes (bilateral nephrectomy - ESRD DIALYSIS M,W,F) Hx End Stage Renal Disease: Yes Hx Insulin Dependent Diabetes: No - Hematic Hx Anemia: Yes (due to acute blood loss) Hx Sickle Cell Disease: No - Other Systems Hx Alcohol Use: No Hx Substance Use: No Hx Cancer: Yes (kidneys) Hx Obesity: No - Additional Comments Anesthesia Medical History Comments: H/o cardiomyopathy; last recorded EF 20-25% (2014)
--- NOTE | 2018-07-15 17:19 | Anesthesia Consultation ---
Anesthesia Consult and Med Hx Date of service: 07/15/18 - Pre-Operative Health Status ASA Pre-Surgery Classification: ASA3 - Pulmonary Hx Smoking: Yes Hx Asthma: No COPD: No Hx Pneumonia: No - Cardiovascular System Hx Hypertension: Yes Hx Coronary Artery Disease: Yes - Central Nervous System CVA: Yes Hx Psychiatric Problems: No - Endocrine Hx Renal Disease: Yes (bilateral nephrectomy - ESRD DIALYSIS M,W,F) Hx End Stage Renal Disease: Yes Hx Insulin Dependent Diabetes: No - Hematic Hx Anemia: No Hx Sickle Cell Disease: No - Other Systems Hx Alcohol Use: No Hx Substance Use: No Hx Cancer: Yes (kidneys) Hx Obesity: No
--- NOTE | 2018-07-15 17:19 | Progress Note ---
Assessment and Plan - Patient Problems (1) ESRD (end stage renal disease) on dialysis Current Visit: No Status: Chronic Plan to address problem: HD today for optimization for surgery in AM. can transfuse 1 PRBC with HD (2) Hemorrhage of arteriovenous fistula Current Visit: Yes Status: Acute Plan to address problem: no further bleeding noted. As per vascular surgery, pt has ulcerated portion of the AV fistula and he will require AVF revision with conversion to brachiocephalic AVF and ligation of radiocephalic AVF; surgery tentatively scheduled for 07/16 (3) Hypotension Current Visit: Yes Status: Acute Plan to address problem: BP improved s/p IVF bolus. 1PRBC with HD (4) Anemia in end-stage renal disease Current Visit: No Status: Acute Plan to address problem: cont EPO with HD Subjective Date of service: 07/15/18 Principal diagnosis: bleeding from left AV fistula site, ESRD on hemodialysis on MWF Interval history: Pt awake, alert, in NAD Objective - Vital Signs Vital signs: Vital Signs - 12hr 07/15/18 07/15/18 07/15/18 06:18 11:02 15:30 Temperature 100.9 F H 98.8 F 98.6 F Pulse Rate 101 H 90 84 Respiratory 16 18 20 Rate Blood Pressure 101/50 95/58 106/59 O2 Sat by Pulse 97 95 Oximetry 07/15/18 07/15/18 07/15/18 15:45 16:00 16:15 Temperature Pulse Rate 84 85 85 Respiratory Rate Blood Pressure 109/63 108/60 111/63 O2 Sat by Pulse Oximetry 07/15/18 07/15/18 16:30 16:38 Temperature Pulse Rate 80 82 Respiratory Rate Blood Pressure 121/67 116/68 O2 Sat by Pulse Oximetry - General Appearance General appearance: well-developed, well-nourished, appears stated age EENT: ATNC, PERRL, mucous membranes moist Neck: no JVD Respiratory: Present: Clear to Ascultation Cardiology: regular, S1S2 Gastrointestinal: normoactive bowel sounds Integumentary: no rash, other (no edema ) Neurologic: no focal deficit, alert and oriented x3, strength 5/5, CN 3-12 intact Psychiatric: mood/affect appropriate, cooperative - Lab 07/15/18 04:22 07/15/18 04:22 Most recent lab results Calcium 8.2 mg/dL (8.4-10.2) L 07/15/18 04:22
[2018-07-16 06:04] LABS: Hematocrit 24.6 % (35.5-45.6); Hemoglobin 8.3 gm/dl (11.8-15.2); Mean Corpuscular HGB Conc 34 % (32-34); Mean Corpuscular Hemoglobin 33 pg (28-32); Mean Corpuscular Volume 97 fl (84-94); Platelet Count 117 K/mm3 (140-440); Red Blood Count 2.53 M/mm3 (3.65-5.03); Red Cell Distribution Width 17.5 % (13.2-15.2)
[2018-07-16 06:28] LABS: Calcium 8.6 mg/dL (8.4-10.2)
[2018-07-16] MEDS ORDERED: DIPRIVAN 10 MG/ML IV ONE ×2 (07:20→13:31)
[2018-07-16] MEDS ORDERED: XYLOCAINE MPF 2% ONE (07:21)
[2018-07-16] MEDS ORDERED: SUBLIMAZE ONE ×2 (07:21→13:30)
[2018-07-16] MEDS ORDERED: ZOFRAN ONE ×2 (07:21→15:16)
[2018-07-16] MEDS ORDERED: NEO SYNEPHRINE/NS Syringe(OR USE) IV ONE (07:21)
[2018-07-16] MEDS: RENVELA PO SCH ×3 (07:46→17:00)
--- NOTE | 2018-07-16 09:19 | Discharge Summary ---
Providers - Providers Date of Admission: 07/13/18 00:02 Attending physician: BECKY AYALA MD 07/12/18 23:23 Consult to Physician [CONS] Stat Comment: Consulting Provider: BERNARDA POWELL Physician Instructions: Reason For Exam: bleeding from the AV fistula 07/13/18 17:31 Consult to Physician [CONS] Routine Comment: Consulting Provider: FANTA COLE Physician Instructions: Reason For Exam: ESRD on HD Primary care physician: SEED PRODUCTION FIELD SUPERVISOR Hospitalization Reason for admission: malfunctioning av fistula Condition: Stable Hospital course: Patient is 57 years old male with history of end-stage renal disease on hemodialysis Thursday, Thursday and Thursday. Patient received dialysis today. Patient presented to the ER via EMS after he started having bleeding from his left arm AV fistula. Per EMS report patient lost about 1 L of blood. His initial blood pressure was 66/32. Bleeding controlled by applying a proximal tourniquet and blood pressure cough. Upon resuscitation in the ER patient is to have a blood pressure showing 67/85. I immediately applied 3 sutures to the bleeding site and then the tourniquet was released was no bleeding after. Patient received a liter of fluid and his blood pressure is 92/56. He does not have any other complaint. on admission the patient proceeded to have placment of permcath with planned revision of AVF WITH Conversion to brachiocephalic AVF and ligation of radiocephalic AVF today prior to discharge, this was done successfully. He did have one episode of elevated BP and was treated with emperic abx. No clear evidence for sepsis was noted. He was also noted to have intermittent hypotension despite transfusion with 2 units prbc, coreg was reduced to 3.125 po bid and patient was sent home on keflex to complete 5 day total tx. Recommend repeat H.H during next dialysis and patient may need another transfusion - Bleeding from Left AV fistula site -SIRS secondary to non infectious etiology -Thrombocytopenia - Anemia from bleeding -Hypotension - ESRD on hemodialysis on MWF Disposition: TO HOME OR SELFCARE Time spent for discharge: 35 mins Core Measure Documentation - Palliative Care Palliative Care/ Comfort Measures: Not Applicable - Core Measures Any of the following diagnoses?: none - VTE Discharge Requirements Deep Vein Thrombosis/Pulmonary Embolism Present on Admission: No Exam - Physical Exam Narrative exam: Constitutional: Well-nourished well-developed. In no distress Head: Normocephalic atraumatic Eyes: Pupils are equal round and reactive to light Nose: No enlarged turbinates, no septal deviation. Mouth: Moist mucous membranes. Neck: Supple no thyromegaly. No bruit. No JVD Heart: Regular rate and rhythm, S1-S2 abnormal. No rubs murmurs or gallop Lungs: Clear to auscultation bilaterally no rales or rhonchi Abdomen: Soft, nontender, Bowel sound are present. Extremities: Dressing on the left AV fistula site. permacath to right chest Neuro: Alert oriented Oriented x3. No focal sensory or motor deficit. Skin: No rashes no hyperemic spots Psychiatry: Euthymic. Calm. - Constitutional Vitals: Temp Pulse Resp BP Pulse Ox 98.2 F 79 20 96/49 95 07/16/18 06:23 07/16/18 06:23 07/16/18 06:23 07/16/18 06:23 07/16/18 06:23 Plan Activity: advance as tolerated, fall precautions Diet: renal Special Instructions: record daily BP diary, record blood sugar diary Follow up with: PRIMARY CAREMD [Primary Care Provider] - 7 Days FANTA COLE MD [Staff Physician] - 7 Days Prescriptions: Carvedilol [Coreg] 3.125 mg PO BID #60 tablet cephALEXin [Keflex] 500 mg PO Q12HR #6 cap HYDROcodone/APAP 5-325 [Brooks 5/325] 1 each PO Q6HR PRN #30 tablet PRN Reason: Pain HYDROcodone/APAP 5-325 [Brooks 5/325] 1 each PO Q6HR PRN #30 tablet PRN Reason: Pain
[2018-07-16] MEDS: ZESTRIL PO SCH (10:00)
[2018-07-16] MEDS: Renal Caps PO SCH (10:00)
[2018-07-16] MEDS: COREG PO SCH (10:00)
[2018-07-16] MEDS: HALFPRIN EC PO SCH (10:00)
[2018-07-16] MEDS: ROCEPHIN/NS 1 GM/50 ML 1 GM/50 ML BAG IV SCH (10:19)
[2018-07-16] MEDS ORDERED: NACL 0.9% 1000 ML 1,000 ML IV SCH (12:30)
[2018-07-16] MEDS ORDERED: MARCAINE 0.5% 30 ML INFILTRATI ONE (13:31)
[2018-07-16] MEDS ORDERED: HEPARIN 10,000 UNITS/10 ML ONE (13:31)
[2018-07-16] MEDS ORDERED: NACL 0.9% 500 ML 500 ML ONE (13:31)
[2018-07-16] MEDS ORDERED: MARCAINE-EPI 0.5%-1:200,000 INFILTRATI ONE ×2 (13:52→14:40)
[2018-07-16] MEDS ORDERED: PAPAVERINE ONE (13:52)
[2018-07-16] MEDS ORDERED: GELFOAM TP ONE ×2 (13:52→14:40)
[2018-07-16] MEDS ORDERED: PROTAMINE SULFATE ONE (13:52)
[2018-07-16] MEDS ORDERED: NITROGLYCERIN SYRINGE 0 ML ONE (13:53)
[2018-07-16] MEDS ORDERED: THROMBIN (BOVINE) TP ONE ×2 (13:53→14:40)
[2018-07-16] MEDS ORDERED: ANCEF ONE (13:56)
[2018-07-16] MEDS ORDERED: NACL 0.9% IR ONE (14:40)
[2018-07-16] MEDS ORDERED: HEPARIN 10,000 UNITS/10 ML 2,000 UNIT in NACL 0.9% 500 ML 500 ML IR ONE (14:41)
[2018-07-16] MEDS ORDERED: DILAUDID ONE (15:13)
--- NOTE | 2018-07-16 16:05 | Operative Report ---
Operative Report Operative Report: Date of procedure: 07/16/2018 Pre-operative diagnosis: Mechanical complication of left upper extremity arteriovenous fistula Post-operative diagnosis: same Procedure name(s): [Open revision of left upper extremity arteriovenous fistula without thrombectomy.] Surgeon: Timbo Valencia MD Wind Instrument Repairer: None Anesthesia: With local supplementation using half percent Marcaine with epinephrine EBL: Minimal Operative indication: Patient is a 57-year-old man with a left arm AV fistula at the wrist. He has now had multiple episodes of bleeding from an eroded area in the middle of the cannulation sites along the left forearm. He presents now for conversion of his fistula to an upper arm fistula. Findings: Excellent thrill in the fistula at the end of the procedure. Procedure: The patient was placed on the table in supine position and given appropriate anesthesia. The area over the left arm was prepped with ChloraPrep solution and draped in the usual sterile fashion. A linear incision was made over the arterial anastomosis at the level of the wrist and dissection was carried out to identify the most proximal portion of the fistula. A total of two 0 silk ties were placed. They were not tied at this time. A second incision was made just inferior to the antecubital fossa. The existing arteriovenous fistula was identified and dissected free from the surrounding tissue. Deeper dissection was done to identify the brachial artery. Once the brachial artery was identified it was clear that the patient had a high bifurcation of the radial artery and that the radial artery coursed in a different direction. I then used the ultrasound identified a proximal radial artery in the upper portion of the arm. I made a third incision just distal to the one at the antecubital fossa. The fistula was identified and surrounded with vessel loops. The radial artery was easily identified and surrounded with vessel loops as well. The patient was heparinized with 2000 units of intravenous heparin. The fistula was ligated at its radial artery origin down to the wrist. The fistula was then divided in the lower elbow incision. The fistula itself was suture ligated with 3-0 Vicryl. The proximal end of the fistula was spatulated and then anastomosed to the side of the radial artery in the forearm using running 6-0 Prolene. All vessels were flushed and vented to remove any air or debris. The anastomosis is completed. Flow started into the fistula with development of an immediate and excellent thrill along the entire body of the fistula following up to the shoulder. A site on the fistula where the bleeding had occurred was then excised all the way down to the fistula. It was reclosed using running 3-0 Prolene. Continuous hemostasis was obtained in all sites. All incisions were infiltrated with half percent Marcaine with epinephrine. Closure is done with 3 -0 Vicryl on the subcutaneous tissue and then 4-0 subcuticular PDS at all sites. Sponge, needle, and instrument counts were reported as correct. The patient tolerated the procedure well. Sponge needle and instrument counts reported as correct. Oozing from the operating room to the recovery room in stable condition. He had an easily palpable left radial pulse. There was an excellent thrill in the artery and venous fistula.
[2018-07-16 18:17] VITALS: BP 107/68
== END 2018-07-16 20:15 | disposition home or self-care (01) | DRG 252 ==
LOC: ED 21:10 → 3A 07-13 00:02
PROVIDERS: ADMIT Internal Medicine; ATTEND Internal Medicine
PROC: 0JH63XZ Insertion of Tunneled Vascular Access Device into Chest Subcutaneous Tissue and Fascia, Percutaneous Approach (ICD-10-PCS; 2018-07-14)
PROC: B513YZA Fluoroscopy of Right Jugular Veins using Other Contrast, Guidance (ICD-10-PCS; 2018-07-14)
PROC: 02H633Z Insertion of Infusion Device into Right Atrium, Percutaneous Approach (ICD-10-PCS; 2018-07-14)
PROC: 5A1D70Z Performance of Urinary Filtration, Intermittent, Less than 6 Hours Per Day (ICD-10-PCS; 2018-07-14)
PROC: 30233N1 Transfusion of Nonautologous Red Blood Cells into Peripheral Vein, Percutaneous Approach (ICD-10-PCS; 2018-07-14)
PROC: 5A1D70Z Performance of Urinary Filtration, Intermittent, Less than 6 Hours Per Day (ICD-10-PCS; 2018-07-15)
PROC: 03WY07Z Revision of Autologous Tissue Substitute in Upper Artery, Open Approach (ICD-10-PCS; principal; 2018-07-16)
PROC: 03LC0ZZ Occlusion of Left Radial Artery, Open Approach (ICD-10-PCS; 2018-07-16)
DX: T82.838A Hemorrhage due to vascular prosthetic devices, implants and grafts, initial encounter (principal); N18.6 End stage renal disease; R65.10 Systemic inflammatory response syndrome (SIRS) of non-infectious origin without acute organ dysfunction; I12.0 Hypertensive chronic kidney disease with stage 5 chronic kidney disease or end stage renal disease; I42.9 Cardiomyopathy, unspecified; F17.200 Nicotine dependence, unspecified, uncomplicated; I25.10 Atherosclerotic heart disease of native coronary artery without angina pectoris; Y83.2 Surgical operation with anastomosis, bypass or graft as the cause of abnormal reaction of the patient, or of later complication, without mention of misadventure at the time of the procedure; I95.89 Other hypotension; D69.6 Thrombocytopenia, unspecified; D63.1 Anemia in chronic kidney disease; E78.5 Hyperlipidemia, unspecified; Z79.82 Long term (current) use of aspirin; Z86.73 Personal history of transient ischemic attack (TIA), and cerebral infarction without residual deficits; Z90.5 Acquired absence of kidney; Z85.528 Personal history of other malignant neoplasm of kidney; Y92.89 Other specified places as the place of occurrence of the external cause; Z79.899 Other long term (current) drug therapy
CPT/HCPCS: 36415; 36430; 36558; 77001; 80048; 80053; 82140; 82962; 85014; 85018; 85025; 85027; 85610; 85730; 86850; 86900; 86901; 86920; 87040; A4649; A9270-GY; C1750; J0690; J0696; J0885; J1170; J1644; J1815; J2250; J2270; J2370; J2405; J2440; J2704; J2720; J3010; J7030; J7040; J7050; P9016